=== PATIENT | male | born 1960 | race Caucasian/White ===

== ENCOUNTER 2019-04-26 14:56 | Outpatient (CLI) | payer OTHER, SELFPAY ==
--- NOTE | 2019-04-26 15:01 | CT_ITS ---
WS: [id number] CT pelvis TECHNIQUE: Contrast-enhanced CT of the pelvis with coronal and sagittal reformatted images. CLINICAL INFORMATION: L PERINEAL PAIN COMPARISON: None. DLP: [address] scans at [facility] use at least one of these dose optimization techniques: automat ed exposure control; mA and/or kV adjustment per patient size (includes targeted exams where dose is matched to clinical indication); or iterative reconstruction. FINDINGS: Mild fecal retention sigmoid colon. Diverticulosis. No evidence of acute diverticulitis. Sigmoid colo n is normal in appearance. Slightly enlarged prostate measuring 4.5 x 3.6 cm. Normal bladder. Left di stal ureterectasis measuring 15 mm. No visualized obstructing calculi. Left kidney can be further margie luated with CT abdomen pelvis. Left kidney is not included on this pelvic study. Distal right ureter appears decompressed. Normal caliber distal abdominal aorta. No inguinal lymphade nopathy. No inguinal hernia. No pelvic lymphadenopathy. Lower lumbar spine is unremarkable. CT/CT pelvis w con* [id number] IMPRESSION: 1. Diverticulosis. 2. No evidence of left lower quadrant or inguinal hernia. 3. No inguinal lymphadenopathy. 4. Dilated distal left ureter measuring 15 mm. No visualized obstructing calcu li. Recommend further evaluation with CT abdomen pelvis. 5. Slightly enlarged prostate measuring 4.4 x 3.6 cm. Recommend correlation PS A. 6. Bladder appears unremarkable.
[2019-04-26] MEDS: iohexol 300 mg/mL 50 mL Btl PO (15:16)
[2019-04-26] MEDS: iohexol 300 mg/mL 100 mL Btl IV (15:17)
== END 2019-04-26 14:57 | disposition home or self-care (01) ==
LOC: RADWPI 15:00
PROVIDERS: Family Provider Family Medicine; PCP Family Medicine; Visit Provider Surgery
DX: K57.90 Diverticulosis of intestine, part unspecified, without perforation or abscess without bleeding (principal); N28.82 Megaloureter; N40.0 Benign prostatic hyperplasia without lower urinary tract symptoms; R10.2 Pelvic and perineal pain
CPT/HCPCS: 72193; Q9967

== ENCOUNTER 2019-05-13 12:19 | Outpatient (CLI) | payer OTHER, SELFPAY ==
--- NOTE | 2019-05-13 12:41 | CT_ITS ---
WS: [id number] CT ABDOMEN PELVIS TECHNIQUE: Contrast-enhanced CT of the abdomen and pelvis with coronal and sagittal reformatted image s. CLINICAL INFORMATION: UNSPECIFIED DISORDER OF KIDNEY AND URETER, BENIGN PROSTATIC COMPARISON: CT pelvis April 26, 2019 DLP: 1247.[address] scans at [facility] use at least one of these dose optimization techniques: automat ed exposure control; mA and/or kV adjustment per patient size (includes targeted exams where dose is matched to clinical indication); or iterative reconstruction. FINDINGS: Again seen is the dilated distal left distal ureter measuring 15 mm. This is unchanged in appearance consistent with a small ureterocele. No obstructing renal or ureteral calculi. Normal renal parenchymal enhancement. No hydronephrosis. No rmal right ureter. Tiny left calyceal tip calculus. A few small bilateral renal cysts largest in the left measuring 1.4 CM. Normal liver. Normal gallblad philipp. Normal portal vein and splenic vein. Normal spleen. Fatty atrophy of the pancreas. Normal caliber abdominal aorta.Enlarged prostate measur ing 4.4 x 3.6 cm unchanged. Diverticulosis. No evidence of acute diverticulitis. Normal appendix. [place] g bases are well aerated. Calcified granuloma left lung base. Degenerative disc disease with endplate sclerosis at L1-2. CT/CT abdomen pelvis w con* [id number] IMPRESSION: 1. Focal dilatation of the distal left ureter proximal to the UVJ consistent w ith ureterocele measuring 15 mm. No obstructing renal or ureteral calculi. 2. Calcified enlarged prostate. Recommend correlation PSA. 3. Small bilateral renal cysts largest in the left measuring 1.4 CM. 4. No abdominal lymphadenopathy.
[2019-05-13] MEDS: iohexol 300 mg/mL 100 mL Btl IV (12:59)
== END 2019-05-13 12:20 | disposition home or self-care (01) ==
LOC: RADWPI 12:21
PROVIDERS: Family Provider Family Medicine; PCP Family Medicine; Visit Provider Family Medicine
DX: N28.9 Disorder of kidney and ureter, unspecified (principal); N40.0 Benign prostatic hyperplasia without lower urinary tract symptoms; N28.82 Megaloureter; Q61.02 Congenital multiple renal cysts
CPT/HCPCS: 74177; Q9967

== ENCOUNTER 2020-07-06 10:08 | Outpatient (CLI) | payer OTHER, SELFPAY ==
--- NOTE | 2020-07-06 10:19 | XR_ITS ---
WS: [id number] Right hip, AP and frog leg, AP pelvis, 07/06/2020 Clinical Data: R HIP PAIN/ARTHRITIS Comparison: None. Findings: No fractures or dislocations are seen. The hip joint is intact. The soft tissues are not remarkable. The adjacent pelvis is normal. There is a prominent acetabular lip. The right SI joint is not remarkable. There is cystic change of the pubic symphysis. XR/XR hip RT 2-3V wo/w pel* [id number] Impression: Prominent right acetabular lip.
== END 2020-07-06 10:09 | disposition home or self-care (01) ==
LOC: RAD 10:15
PROVIDERS: PCP Family Medicine; Visit Provider Family Medicine
DX: M25.551 Pain in right hip (principal); M19.90 Unspecified osteoarthritis, unspecified site
CPT/HCPCS: 73502

== ENCOUNTER 2020-12-26 09:16 | Inpatient (IN) | payer OTHER, SELFPAY ==
[2020-12-26] VITALS (49 sets, daily range): BP systolic 116–162; BP diastolic 46–89; PULSE 30–160; RESP 5–96; TEMP 36.6; O2SAT 86–98; BMI 31.1
--- NOTE | 2020-12-26 09:28 | ECG_ITS ---
[facility] Test Date: 2020-12-26 Pat Name: Be Sim Department: Room: Gender: Male Box Builder: : 1960 Requested By: Rajan Santiago Order Number: [id number] Derrick MD: Savi Dunham M.D. Measurements Intervals [place] Rate: 29 P: [place]: QRS: 42 QRSD: 153 T: 18 QT: 507 QTc: 355 Interpretive Statements SINUS BRADYCARDIA WITH 2ND DEGREE AV BLOCK, 2:1 OR MOBITZ TYPE II RIGHT BUNDLE BRANCH BLOCK [120+ ms QRS DURATION, UPRIGHT V1, 40+ ms S IN I/aVL/V4/V5/V6] CRITICAL TEST RESULT INTERPRETATION BASED ON A DEFAULT AGE OF 40 YEARS No previous ECG available for comparison Electronically Signed On 12-26-2020 21:30:00 CDT by Savi Dunham M.D. [id number]
[2020-12-26] MEDS: DOPamine drip 400 MG/250 ML PREMIX 11.74 MG IV (09:43)
[2020-12-26 09:50] LABS: Basophils # 0.1 10^3/uL (0.0-0.1); Eosinophils # 0.3 10^3/uL (0.0-0.8); Eosinophils % 4.9 %; Hematocrit 43.7 % (42.0-52.0); Hemoglobin 14.3 g/dL (11.7-16.6); Lymphocytes # 1.5 10^3/uL (0.8-4.8); Lymphocytes % 28.3 %; Mean Corpuscular HGB Conc 32.7 g/dL (30.0-36.0); Mean Corpuscular Hemoglobin 28.9 pg (28.0-34.0); Mean Corpuscular Volume 88.5 fl (80-94); Mean Platelet Volume 10.7 fL (7.4-10.4); Monocytes # 0.8 10^3/uL (0.2-0.9); Neutrophils # 2.59 10^3/uL (1.8-7.7); Neutrophils % 50.6 %; Nucleated Red Blood Cells % 0 %; Platelet Count 222 10^3/cmm (130-400); Red Blood Count 4.94 10^6/uL (4.1-5.3); Red Cell Distribution Width 13.9 % (12.1-15.1); White Blood Count 5.1 10^3/uL (4.0-10.0)
--- NOTE | 2020-12-26 09:50 | W.ED.GENADLT ---
HPI - General Adult General: Chief complaint: General Medical Stated complaint: Low BP & Pulse, Lightheaded Time Seen by Provider: 12/26/20 09:25 History of Present Illness: HPI narrative: 60-year-old male presents emergency room with a static-like symptoms lightheaded and dizzy when he first stands has been going on for some time now. On arrival today he has profound bradycardia he is in a 2-1 heart block. Is actually intermittent we did get an EKG on him where he was back in a severe sinus bradycardia then very shortly after that he goes back into the 2-1 block. Pressure is stable. He denies any chest pain. Evidently this has been going on for several weeks he is not on any blood thinners he is not on any beta-blockers or calcium channel blockers or any other negative around her tropes. Onset (ago): week(s) Severity: moderate Relieving factors: rest Exacerbating factors: other (Change in body position) Associated symptoms: Reports malaise; Deny chest pain, confusion, cough, diaphoresis, decreased appetite, dyspnea, fevers/chills, headache(s), nausea, rash, palpitations, seizures, short of breath, syncope, vomiting or weakness Treatments prior to arrival: none Review of Systems Const: Reports: malaise; Denies: diaphoresis ENMT: Denies: throat pain, ear or mastoid pain, nasal discharge or nasal congestion Card: Denies: chest pain, palpitations or syncope Resp: Denies: dyspnea GI: Denies: nausea or vomiting : Denies: flank pain, dysuria, urinary frequency or urinary urgency Skin/Breast: Denies: rash Neuro: Denies: headache(s) or confusion PFS ED PFSH: Medical History Depression HTN (hypertension) Peyronie disease RBBB Surgical History H/O arthroscopic knee surgery Previous back surgery Social History Smoking and tobacco status: never smoked Alcohol intake: current Alcohol intake frequency: holidays/special occasions only Physical Exam Const: COMMON NORMALS: no acute distress GENERAL APPEARANCE: cooperative and comfortable ORIENTATION/CONSCIOUSNESS: Yes awake, Yes oriented to person, Yes oriented to place and Yes oriented to time HENMT: COMMON NORMALS: normocephalic, atraumatic and hearing grossly normal bilaterally HEAD & SCALP: normocephalic and atraumatic Eye: COMMON NORMALS: Equal, round and reactive pupils present, EOMs intact bilaterally, conjunctivae normal and no scleral icterus CONJUNCTIVA: Yes conjunctivae normal PUPIL: Yes Equal, round and reactive pupils present Neck/C-Spine: COMMON NORMALS: full ROM, no lymphadenopathy and supple Lymph: LYMPHATIC: no lymphadenopathy noted and no lymphedema noted Resp: COMMON NORMALS: normal respiratory effort, No retractions, No use of accessory muscles and clear to auscultation bilaterally AUSCULTATION: clear to auscultation bilaterally Cardio: COMMON NORMALS: S1 normal heart sound present and S2 normal heart sound present RATE: bradycardic HEART SOUNDS: S1 normal heart sound present and S2 normal heart sound present GI: COMMON NORMALS: Soft to palpation and No hepatosplenomegaly present AUSCULTATION: Yes normoactive bowel sounds PALPATION: Yes Soft to palpation, No Tenderness to palpation present (GI), No Guarding due to palpation present (GI) and Yes No hepatosplenomegaly present Extremity: COMMON NORMALS: normal to inspection, capillary refill normal, no clubbing, cyanosis or edema, no calf tenderness and no pedal edema Neuro: SENSORIUM/ORIENTATION: Yes oriented to person, Yes oriented to place and Yes oriented to time Skin: COMMON NORMALS: no rashes or lesions noted GENERAL SKIN EXAM: no rashes or lesions noted Course Vital Signs: Vital signs: Vital Signs Temperature 99.0 F 12/28/20 08:00 Pulse Rate 61 12/28/20 09:00 Respiratory Rate 20 H 12/28/20 09:00 Blood Pressure 134/97 12/28/20 09:00 Pulse Oximetry 96 12/28/20 09:00 MDM - General Adult MDM Narrative: Medical decision making narrative: Initial EKG patient is showing a 2-1 block with what appears to be third-degree AV block he is completely independent QRS and OK complexes with no variation in the OK interval and the there is conduction through to the the AV node. Patient is asymptomatic for the most part as long as he remains lying down. Discussing with him this is been going on for quite some time. He has heart rate down into the 20s at times. We were able to get an EKG with him out of the block and then literally within 60 seconds he was back into the third-degree block. These were all documented. Have discussed with cardiology patient will be admitted for further evaluation for possible pacemaker placement. Lab Data: Labs: Lab Results 12/26/20 12/26/20 12/26/20 09:35 09:35 09:35 WBC 5.1 10^3/uL 10^3/ uL (4.0-10.0) RBC 4.94 10^6/uL 10^6 /uL (4.1-5.3) Hgb 14.3 g/dL g/dL (11.7-16.6) Hct 43.7 % % (42.0-52.0) MCV 88.5 fl fl (80-94) MCH 28.9 pg pg (28.0-34.0) MCHC 32.7 g/dL g/dL (30.0-36.0) RDW 13.9 % % (12.1-15.1) Plt Count 222 10^3/cmm 10^3 /cmm (130-400) MPV 10.7 fL H fL (7.4-10.4) Neut % (Auto) 50.6 % % Lymph % (Auto) 28.3 % % [place] % (Auto) 15.0 % % Eos % (Auto) 4.9 % % Baso % (Auto) 1.0 % % Neut # (Auto) 2.59 10^3/uL 10^3 /uL (1.8-7.7) Lymph # (Auto) 1.5 10^3/uL 10^3/ uL (0.8-4.8) [place] # (Auto) 0.8 10^3/uL 10^3/ uL (0.2-0.9) Eos # (Auto) 0.3 10^3/uL 10^3/ uL (0.0-0.8) Baso # (Auto) 0.1 10^3/uL 10^3/ uL (0.0-0.1) Nucleated RBC % (a uto) 0 % % Nucleated RBCs # 0.0 /100WBC /100W BC Sodium 137 mmol/L mmol/L (136-145) Potassium 4.8 mmol/L mmol/L (3.5-5.1) Chloride 102 mmol/L mmol/L (98-107) Carbon Dioxide 28 mmol/L mmol/L (22-29) Anion Gap 11.8 (5-19) BUN 24 mg/dL H mg/dL (8-23) Creatinine 0.9 mg/dL mg/dL (0.7-1.2) GFR Calculation 86.1 mL/min L mL/ min (90-130) Glucose 88 mg/dL mg/dL (65-115) Calculated Osmolal ity 287 mOsm/kg mOsm/ kg (285-295) Calcium 8.7 mg/dL mg/dL (8.5-10.5) Total Bilirubin 0.3 mg/dL mg/dL (0.15-1.2) AST 18 U/L U/L (0-40) ALT 20 U/L U/L (0-41) Alkaline Phosphata se 65 IU/L IU/L (40-130) Troponin T Baselin e 9 ng/L ng/L (0-15) Total Protein 6.8 g/dL g/dL (6.6-8.7) Albumin 4.1 g/dL g/dL (3.5-5.2) Globulin 2.7 g/dL g/dL (1.3-4.6) Discharge Plan Discharge Patient Disposition: Admitted As Inpatient Admit Provider: Lana Aguilera Clinical Impression: Third degree atrioventricular block, HTN (hypertension) Condition: Stable Discharge Diet: Cardiac Discharge Activity: Limit activity as instructed Coding Level of Care Code ED Inspector Purchased Parts for Chg Fwd Exam Comprehensive
--- NOTE | 2020-12-26 10:12 | XR_ITS ---
WS: [id number] Exam: XR chest 1V portable [id number] Date/Time of Exam: 12/26/2020 10:12 AM Reason For Exam: chest pain Comparison 07/25/2015. Findings: The lungs are clear and fully expanded. Costophrenic angles are sharp. No infiltrates. Bronchovascula r relief appears normal. Cardiac silhouette is unremarkable. Bony elements are intact. XR/XR chest 1V portable [id number] IMPRESSION: Unremarkable chest radiograph.
[2020-12-26 10:21] LABS: Troponin(5th) Baseline 9 ng/L (0-15)
[2020-12-26 10:23] LABS: Alanine Aminotransferase 20 U/L (0-41); Albumin Level 4.1 g/dL (3.5-5.2); Alkaline Phosphatase 65 IU/L (40-130); Anion Gap 11.8 (5-19); Aspartate Amino Transferase 18 U/L (0-40); Blood Urea Nitrogen 24 mg/dL (8-23); Calcium 8.7 mg/dL (8.5-10.5); Carbon Dioxide 28 mmol/L (22-29); Chloride 102 mmol/L (98-107); Globulin 2.7 g/dL (1.3-4.6); Glomerular Filtration Rate 86.1 mL/min (90-130); Glucose 88 mg/dL (65-115); Osmolality Calculated 287 mOsm/kg (285-295); Potassium 4.8 mmol/L (3.5-5.1); Sodium 137 mmol/L (136-145); Total Bilirubin 0.3 mg/dL (0.15-1.2); Total Protein 6.8 g/dL (6.6-8.7)
--- NOTE | 2020-12-26 10:50 | USCV_ITS ---
Be Sim Age: 60 Gender: M : 1960 Exam Date: 12/26/2020 14:35 Ordering Phys: Lana Aguilera MD ([email or web address]) Technologist: Dawood Wang Exam Location: [facility] [place] Indication: Bradycardia, Heart Block, Dizziness BP: 158 / 69 HR: 36 Rhythm: Sinus Technical Quality: Adequate MEASUREMENTS (Male / Female) Normal Values 2D ECHO LV Diastolic Diameter PLAX 3.7 cm 4.2 - 5.9 / 3.9 - 5.3 cm LV Systolic Diameter PLAX 2.4 cm IVS Diastolic Thickness 1.7 cm 0.6 - 1.0 / 0.6 - 0.9 cm IVS Systolic Thickness 1.6 cm LVPW Diastolic Thickness 1.5 cm 0.6 - 1.0 / 0.6 - 0.9 cm LVPW Systolic Thickness 1.3 cm LVOT Diameter 2.1 cm LV Ejection Fraction 2D Teich 66.8 % LV Ejection Fraction MOD 2C 60.2 % LV Ejection Fraction 2C AL 59.3 % LA Diameter 3.9 cm M-MODE Aortic Annulus Diameter 3.2 cm LA Ao Ratio MM 1.3 MV E Point Septal Separation 0.8 cm DOPPLER AV Peak Velocity 239.0 cm/s LVOT Peak Velocity 152.0 cm/s AV Area Cont Eq vti 2.3 cm squared AV Area Cont Eq pk 2.2 cm squared MV Area PHT 5.0 cm squared Mitral E to A Ratio 2.0 MV E' Velocity 72.0 cm/s Mitral E to MV E' Ratio 6.4 Mitral E to LV E' Lateral Ratio 6.5 Mitral E to LV E' Septal Ratio 6.4 TR Peak Velocity 219.7 cm/s TR Peak Gradient 19.3 mmHg TV Peak E Velocity 131.0 cm/s FINDINGS Left Ventricle Normal left ventricular size, systolic function and wall thickness, with no regional wall motion abnormalities. Left ventricular ejection fraction is estimated at 70 %. Right Ventricle Normal right ventricular size and systolic function. RVSP could not be calculated due to incomplete tricuspid regurgitation velocity profile. Right Atrium Normal right atrial size. Left Atrium Normal left atrial size. Mitral Valve Structurally normal mitral valve. No mitral valve stenosis. Mild mitral valve regurgitation. Aortic Valve Aortic valve not well visualized. No aortic valve stenosis. No aortic valve regurgitation. Tricuspid Valve Structurally normal tricuspid valve. Trace tricuspid valve regurgitation. Pulmonic Valve Pulmonic valve not well visualized. Pericardium No pericardial effusion. Aorta Normal-sized aortic root. CONCLUSIONS 1. This is a technically difficult study. Ultrasound enhancing agent Optison was used per protocol. 2. Normal left ventricular size, systolic function and wall thickness, with no regional wall motion abnormalities. Left ventricular ejection fraction is estimated at 70 %. 3. Normal right ventricular size and systolic function. 4. Mild mitral valve regurgitation. 5. No prior similar studies to compare. Lana Aguilera MD (Electronically Signed) Final Date: 26 December 2020 17:27 S
--- NOTE | 2020-12-26 10:54 | PM.HP ---
Providers/Chief Complaint Admitting Physician: Lana Aguilera MD Primary Care Provider: oJse Roberto Carlson DO Chief Complaint: Low BP & Pulse, Lightheaded History of Present Illness Be Sim is a 60 year old male with past medical history of hypertension, depression and right eye blindness presented to the ER with 2-week history of feeling tired and fatigue and 4-day history of feeling dizzy and lightheaded especially on standing up. Patient's blood pressure usually ranges from 103-143/49-76 mmHg and heart rate ranges from 49 to 58 bpm. He takes valsartan 40 mg for hypertension but for the last 4 days his blood pressure was running lower and he did not take his valsartan. Heart rate has been ranging from 3243 bpm for the last 4 days. He has no prior history of coronary artery disease, congestive heart failure, history of CVA or TIA. No prior history of thyroid problems or any recent illness. He denies any URI or UTI-like symptoms on arrival. No chest pain, leg swelling dyspnea on exertion orthopnea or paroxysmal nocturnal dyspnea. Patient has been on citalopram for depression for a long time and was also taking pentoxifylline 400 mg twice a day for suspected Peyronie's disease for 2 months which he quit 2 weeks back. 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 On arrival to the ER he was found to be bradycardic with heart rate in 20s. EKG showed sinus bradycardia with 2:1 AV block at 29 bpm. Right bundle branch block. Initial labs including WBC, electrolytes, troponin T and renal function was within normal limits. He was started on dopamine at 3 that was increased to 5 mcg/kg/min. blood pressure on arrival 139/89 mmHg. He has been vaccinated with 2 doses of [place] COVID-19 vaccine in September and October. No recent sick contacts or prior COVID-19 infection. Review of Systems General: Reports: 10 or more systems reviewed and unremarkable except in HPI and below Const: Reports: malaise; Denies: fever(s), chills or diaphoresis ENMT: Denies: throat pain, ear or mastoid pain, nasal discharge or nasal congestion Card: Denies: chest pain, palpitations or syncope Resp: Denies: dyspnea GI: Denies: nausea or vomiting : Denies: flank pain, dysuria, urinary frequency or urinary urgency Skin/Breast: Denies: rash Neuro: Denies: headache(s) or confusion Psych: Denies: anxiety or depression [place]/Lymph: Denies: easy bruising or easy bleeding Medications/Allergies Home Medications Medication Instructions Recorded Confirmed Last Taken Type cetirizine [Zyrtec] 10 mg PO DAILY 12/26/20 12/26/20 12/25/20 History citalopram 40 mg PO DAILY 12/26/20 12/26/20 12/25/20 History pentoxifylline 400 mg PO BID 12/26/20 12/26/20 12/19/20 History Allergies Allergy/AdvReac Type Severity Reaction Status Date / Time No Known Allergies Allergy Verified 12/26/20 09:38 PFSH Acute PFSH: Medical History (Updated 12/26/20 @ 13:33 by Lana Aguilera MD) Depression HTN (hypertension) Peyronie disease RBBB Surgical History (Updated 12/26/20 @ 13:27 by Lana Aguilera MD) H/O arthroscopic knee surgery Previous back surgery Social History (Updated 12/26/20 @ 13:28 by Lana Aguilera MD) Smoking and tobacco status: never smoked Alcohol intake: current Alcohol intake frequency: holidays/special occasions only Substance/Drug Use: never Vitals/I&O/Wt Last Vital Signs Temp 97.8 F 12/26/20 09:27 Pulse 34 L 12/26/20 10:29 Resp 13 12/26/20 10:29 BP 147/68 12/26/20 10:29 Pulse Ox 93 12/26/20 10:29 12/25/20 12/26/20 12/26/20 22:59 06:59 14:59 Intake Total 2.152 / 2.152 Balance 2.152 / 2.152 Weight last 48 hrs Weight 230 lb Weight 230 lb Physical Exam Narrative: EXAM NARRATIVE: GENERAL: Averagely built and averagely nourished in no acute distress HEENT: Right eye ocular prosthesis. No pallor or icterus. NECK: No JVD, No carotid bruit. CARDIOVASCULAR SYSTEM: S1-S2 regular. bradycardia+, No murmur appreciated RESPIRATORY SYSTEM: Chest clear to auscultation. No wheezes rhonchi or rubs heard. No use of accessory muscles. ABDOMEN: Soft, nontender and nondistended. Normal bowel sounds present. EXTREMITIES: No cyanosis or clubbing. No edema. LIABILITY CLAIMS REPRESENTATIVE: Patient is alert oriented ?3. No focal neurological deficits. SKIN: Normal turgor and temperature. PSYCH: Normal insight and judgment. Data : 12/26/20 09:35 12/26/20 09:35 A&P Assessment and plan (1) Bradycardia: Status: Acute (2) AV block, 2nd degree: He remains in 2:1 AV block. Increase dopamine gtt to 10 mcg/kg/min -Plan for Echo and f/u on troponin T and EKG's -Not on AV shyann blockers. -Will get rapid COVID antigen and COVID-19 PCR tests pre PPM. -continue to monitor closely in ICU. -TCP pads in place. No indications for temporary pacemaker presently. Status: Acute (3) HTN (hypertension): Status: Acute Qualifiers: Hypertension type: essential hypertension Qualified Code(s): I10 - Essential (primary) hypertension (4) RBBB: Status: Acute (5) Depression: Status: Acute Qualifiers: Depression Type: unspecified Qualified Code(s): F32.9 - Major depressive disorder, single episode, unspecified Attestations Medical Necessity Statement*: Patient needs hospital stay for management of bradycardia with 2:1 AV block Time Spent in Patient Care: Greater than 35 minutes (>than 50% of time spent in counselling and/or direct pt care on unit). Coding Level of Care Code Acute Evaporator Repairer for [facility] [place] Diagnoses Bradycardia R00.1 AV block, 2nd degree I44.1 HTN (hypertension) I10 Hypertension type: essential hypertension RBBB I45.10 Depression F32.9 Depression Type: unspecified
--- NOTE | 2020-12-26 11:28 | ECG_ITS ---
[facility] Test Date: 2020-12-26 Pat Name: Be Sim Department: Room: [facility] Gender: Male Director Of Analytics: : 1960 Requested By: Rajan Santiago Order Number: [id number] Derrick MD: Savi Dunham M.D. Measurements Intervals [place] Rate: 36 P: [place]: QRS: 74 QRSD: 153 T: 34 QT: 507 QTc: 397 Interpretive Statements SINUS BRADYCARDIA WITH 2ND DEGREE AV BLOCK, 2:1 OR MOBITZ TYPE II RIGHT BUNDLE BRANCH BLOCK [120+ ms QRS DURATION, UPRIGHT V1, 40+ ms S IN I/aVL/V4/V5/V6] CRITICAL TEST RESULT Compared to ECG 12/26/2020 09:41:59 No significant changes Electronically Signed On 12-26-2020 21:49:00 CDT by Savi Dunham M.D. [id number]
[2020-12-26 12:20] LABS: Troponin 5 2HR 7.59 ng/L (0-15)
[2020-12-26 12:28] LABS: Troponin 5 2HR Delta -1.41 ABS# (0-10)
[2020-12-26] MEDS: enoxaparin 40 mg/0.4 mL Syringe SUBCUT (13:41)
--- NOTE | 2020-12-26 14:02 | PC.NURSE ---
Has an artificial right eye.
--- NOTE | 2020-12-26 14:13 | PC.NURSE ---
Admit Note Patient admitted to ICU 5 from ED via bed. Covering service notified. Patient presents with shoes, clothing, wedding ring, phone, and wallet. will take wallet home. taken to room. Orders reviewed & will continue to monitor. Patient and/or credit representative oriented to environment, equipment, and informed of the following as found in the admission booklet: patient rights & responsibilities, visitor policy, hand and respiratory hygiene practice. Other education includes: dopamine and care plan. Patient and/or credit representative indicated understanding.
--- NOTE | 2020-12-26 14:17 | PC.NURSE ---
1215: Dopamine increased from 5 mcg to 10 mcg per doctor by bedside.
[2020-12-26 14:38] LABS: Add Urine Microscopic? NO; Charge for UA Resulting for Rev
[2020-12-26] MEDS: perflutren protein-a microsphr 0.22 mg/mL SDV 3 mL IV (15:09)
--- NOTE | 2020-12-26 15:28 | ECG_ITS ---
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 Measurements Intervals [place] Rate: 34 P: [place]: QRS: 58 QRSD: 149 T: 22 QT: 540 QTc: 410 Interpretive Statements SINUS BRADYCARDIA WITH 2ND DEGREE AV BLOCK, 2:1 OR MOBITZ TYPE II RIGHT BUNDLE BRANCH BLOCK [120+ ms QRS DURATION, UPRIGHT V1, 40+ ms S IN I/aVL/V4/V5/V6] CRITICAL TEST RESULT Compared to ECG 12/26/2020 13:38:25 No significant changes Electronically Signed On 12-26-2020 21:51:15 CDT by Savi Dunham M.D. [email or web address]/OM/[id number]
[2020-12-26] MEDS: acetaminophen 325 mg Tablet 650 MG PO (15:35)
[2020-12-26 15:53] LABS: SARS Covid-2 Antigen Negative (Negative)
[2020-12-26 16:03] LABS: Troponin 5 6HR 18.03 ng/L (0-15); Troponin 5 6HR Delta 9.03 ng/L (0-12)
[2020-12-26 16:10] LABS: Bilirubin Urine Neg (Negative); Blood Urine Neg (Negative); Glucose Urine UA Norm (Normal); Ketones Urine 1+ (Negative); Leukocyte Esterase Urine Negative (Negative); Nitrate Urine Negative (Negative); Protein Urine Neg (Negative); Urine Appearance Clear (CLEAR); Urine Color Yellow (Yellow); Urobilinogen Urine Norm (Negative); pH Urine 6 (5-7)
[2020-12-26] MEDS: nicotine 14 mg Patch 1 PATCH TRANSDERMA (16:18)
[2020-12-26] MEDS: DOPamine drip 400 MG/250 ML PREMIX 39.12 MG IV ×2 (17:05→23:35)
--- NOTE | 2020-12-26 18:08 | PC.NURSE ---
Patient states that he chews one can of tobacco a day. Pt states that he chews all day long. Patient rated headache at a 6. Gave Tylenol for headache and darkened room.
--- NOTE | 2020-12-26 19:11 | PC.NURSE ---
Shift Note Frequent safety and comfort rounds continue. Orders and/or nursing care completed as indicated. Patient monitored for response to intervention and treatment(s). Education provided includes plan of care, medications, activity, and bed rest order. Patient verbalized understanding. Patient has an artificial right eye. Patient gets up to side of bed independently. Bed rest order discussed with patient. Patient resting and has television on.
[2020-12-26] MEDS: HYDROcodone-acetaminophen 5-325 mg Tablet 1 TAB PO (19:17)
--- NOTE | 2020-12-26 19:46 | PC.NURSE ---
C/O GARRETT 10/06, PRN [place] administered per patient request, no other c/o at this time, AO x4, at bedside
[2020-12-26] MEDS: ondansetron 2 mg/ML SDV 2 mL 4 MG IVP (23:40)
--- NOTE | 2020-12-26 23:40 | PC.NURSE ---
one episode emesis, PRN Zofran administered
[2020-12-27] VITALS (43 sets, daily range): BP systolic 91–188; BP diastolic 40–106; PULSE 29–61; RESP 4–19; TEMP 36.6; O2SAT 81–98
[2020-12-27] MEDS: DOPamine drip 400 MG/250 ML PREMIX 39.12 MG IV ×2 (05:02→10:53)
[2020-12-27 05:13] LABS: Basophils # 0.1 10^3/uL (0.0-0.1); Basophils % 0.5 %; Eosinophils # 0.1 10^3/uL (0.0-0.8); Eosinophils % 0.8 %; Hematocrit 48.3 % (42.0-52.0); Hemoglobin 15.7 g/dL (11.7-16.6); Lymphocytes # 1.7 10^3/uL (0.8-4.8); Lymphocytes % 17.9 %; Mean Corpuscular HGB Conc 32.5 g/dL (30.0-36.0); Mean Corpuscular Hemoglobin 28.2 pg (28.0-34.0); Mean Corpuscular Volume 86.9 fl (80-94); Mean Platelet Volume 10.3 fL (7.4-10.4); Monocytes # 1.1 10^3/uL (0.2-0.9); Monocytes % 11.2 %; Neutrophils # 6.66 10^3/uL (1.8-7.7); Neutrophils % 69.3 %; Nucleated Red Blood Cells % 0 %; Platelet Count 258 10^3/cmm (130-400); Red Blood Count 5.56 10^6/uL (4.1-5.3); Red Cell Distribution Width 13.1 % (12.1-15.1); White Blood Count 9.6 10^3/uL (4.0-10.0)
[2020-12-27 05:31] LABS: Estmated Average Glucose 114; Hemoglobin A1C 5.6 % (4.0-6.0)
[2020-12-27 05:41] LABS: Alanine Aminotransferase 19 U/L (0-41); Albumin Level 4.1 g/dL (3.5-5.2); Alkaline Phosphatase 68 IU/L (40-130); Anion Gap 14.6 (5-19); Aspartate Amino Transferase 16 U/L (0-40); Blood Urea Nitrogen 17 mg/dL (8-23); Carbon Dioxide 27 mmol/L (22-29); Chloride 105 mmol/L (98-107); Chol HDL Ratio 2.33 mg/dL (1.0-5.00); Cholesterol 161 mg/dL (0-200); Creatinine Clr Calc Pharmacy 122.6256; Globulin 3.3 g/dL (1.3-4.6); Glomerular Filtration Rate 98.6 mL/min (90-130); Glucose 120 mg/dL (65-115); HDL Cholesterol 69 mg/dL (60-100); LDL Cholesterol Calculated 82 mg/dL (50-129); LDL HDL Ratio 1.19 RATIO (0.00-3.22); Osmolality Calculated 297 mOsm/kg (285-295); Potassium 4.6 mmol/L (3.5-5.1); Sodium 142 mmol/L (136-145); Total Bilirubin 0.4 mg/dL (0.15-1.2); Total Protein 7.4 g/dL (6.6-8.7); Triglycerides 52 mg/dL (0-150)
--- NOTE | 2020-12-27 06:46 | PC.NURSE ---
Dr. Oneal reviewed rhyth no n.o., no c/o from patient at this time, call light within reach
--- NOTE | 2020-12-27 06:48 | PC.NURSE ---
Shift Note Frequent safety and comfort rounds continue. Orders and/or nursing care completed as indicated. Patient monitored for response to intervention and treatment(s). Education provided includes[Heart rhythm]. Patient and/or policy services representative [reported understanding]. Will continue to monitor.
--- NOTE | 2020-12-27 07:26 | PC.NURSE ---
Patient resting in bed. Patient HR ranging from 29-50 beats per minute this morning. Patient being monitor and awaiting a pacemaker on Thursday, if Covid send out comes back negative. Patient is currently on Dopamine drip 10mcg/kg/min. Will continue to monitor.
--- NOTE | 2020-12-27 08:09 | PC.NURSE ---
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 Patient states that he has had it since he was 1.5 years old.
--- NOTE | 2020-12-27 08:23 | PC.NURSE ---
Patient educated on the importance of calling to get up due to his HR and bp, and told that it can make him weak and make him feel faint. Patient verbalized understanding. Bed low locked position, side rails up x2, and call light in reach. Will continue to monitor.
--- NOTE | 2020-12-27 09:16 | P.CONIM_ITS ---
Providers/Reason For Consult Consulting Physician/Specialty*: Cardiology Reason for Consult*: For permanent pacemaker implantation Attending Physician: Lana Aguilera MD Primary Care Provider: Jose Roberto Carlson DO History of Present Illness History of Present Illness Be Sim is a 60 year old male with a longstanding history of hypertension, is admitted to the hospital with complaints of dizziness , weakness and bradycardia. He was found to have second-degree heart block and intermittent high degree AV block. The consult is requested for a permanent pacemaker implantation. This patient apparently has been in his baseline state of health up until last Thursday when he started getting dizzy and lightheaded as he gets up and move around. Prior to this, he has been having some progressive shortness of breath with exertion. He denies any fever, chills or cough. No syncopal episodes. He has been compliant with medications. No recent medication changes. 3 of his paternal aunts had permanent pacemaker medications! Review of Systems Narrative: CONSTITUTIONAL: No fever or chills. Feeling of dizziness/weakness since last Thursday EYES: No vision in the right eye ENT: No hoarseness of voice, auditory disturbances or sore throat. CARDIOVASCULAR: As mentioned above. RESPIRATORY: No significant cough. GASTROINTESTINAL: No hematemesis or melena. GENITOURINARY: No dysuria or hematuria. INTEGUMENTARY: No skin rashes or history of skin cancer. NEURO: No transient ischemic attacks or amaurosis. PSYCHIATRIC: No history of psychosis or major depression. HEMATOLOGIC: No bleeding disorders or significant anemia. ENDOCRINE: No history of polyuria or polydipsia. MUSCULOSKELETAL: No recent joint pain or swelling. ALLERGY/IMMUNOLOGY: As mentioned above. Meds/Allergies Home Medications and Allergies Home Medications Medication Instructions Recorded Confirmed Last Taken Type cetirizine [Zyrtec] 10 mg PO DAILY 12/26/20 12/26/20 12/25/20 History citalopram 40 mg PO DAILY 12/26/20 12/26/20 12/25/20 History pentoxifylline 400 mg PO BID 12/26/20 12/26/20 12/19/20 History Allergies Allergy/AdvReac Type Severity Reaction Status Date / Time No Known Allergies Allergy Verified 12/26/20 09:38 Current Medications Current Medications Generic Name Dose Route Start Last Admin Trade Name Freq PRN Reason Stop Dose Admin Acetaminophen 650 mg 12/26/20 12:32 12/26/20 15:35 Acetaminophen 325 Mg Tablet PO 650 mg Q6H PRN Administration Mild/Mod Pain Or Temp >/= 101 Hydrocodone Bitart/Acetaminophen 1 tab 12/26/20 16:38 12/26/20 19:17 Hydrocodone-Acetaminophen 5-325 Mg Tablet PO 1 tab Q8H PRN Administration MODERATE PAIN Enoxaparin Sodium 40 mg 12/26/20 12:45 12/26/20 13:41 Enoxaparin 40 Mg/0.4 Ml Syringe SUBCUT 40 mg Q24H NIRAV Administration Dopamine HCl/Dextrose 400 mg in 250 mls @ 19.561 mls/hr 12/26/20 09:45 12/27/20 05:02 Intropin Drip IV 10 mcg/kg/min CONT NIRAV 39.12 mls/hr Administration Protocol 5 MCG/KG/MIN Nicotine 1 patch 12/26/20 16:30 12/26/20 16:18 Nicotine 14 Mg Patch TRANSDERMA 1 patch DAILY NIRAV Administration Ondansetron HCl 4 mg 12/26/20 12:32 12/26/20 23:40 Ondansetron 2 Mg/Ml Sdv 2 Ml IVP 4 mg Q8H PRN Administration vomiting, or N/V if npo PFSH Acute PFSH: Medical History Depression HTN (hypertension) Peyronie disease RBBB Surgical History H/O arthroscopic knee surgery Previous back surgery Social History Smoking and tobacco status: never smoked Alcohol intake: current Alcohol intake frequency: holidays/special occasions only Substance/Drug Use: never Vitals/I&O/Wt Last Vital Signs Temp 97.9 F 12/27/20 08:00 Pulse 30 L 12/27/20 08:30 Resp 12 12/27/20 08:30 BP 129/52 12/27/20 08:30 Pulse Ox 91 12/27/20 08:30 12/26/20 12/27/20 12/27/20 22:59 06:59 14:59 Intake Total 722.62 / 1084.000 500 / 1584.000 354 / 354 Output Total 800 / 1050 1410 / 2460 300 / 300 Balance -77.38 / 34.000 -910 / -876.000 54 / 54 Weight last 48 hrs Weight 230 lb Weight 230 lb Physical Exam Narrative: EXAM NARRATIVE: GENERAL: The patient is alert and oriented times three. Not in any acute distress. HEENT: No significant pallor, icterus or lymphadenopathy.Oral cavity: There are no mucous membrane lesions. NECK: Trachea appears to be central. No masses noted. No JVD or thyromegaly appreciated. RESPIRATORY: Chest is symmetrical. No intercostals muscle retraction or any accessory muscle activation. There is no chest wall tenderness. Breath sounds are heard bilaterally. No rales or rhonchi heard. No evidence of any consolidation. BREASTS: Deferred. HEART: The heart sounds are normal. No S3 or S4. No significant murmurs. No pericardial rub ABDOMEN: No vessel pulsations or distention. No tenderness. No organomegaly appreciated. Bowel sounds are normally heard. : Deferred. RECTAL: Deferred. LYMPHATIC: No lymphadenopathy noted in the neck or groin. EXTREMITIES: No edema or cyanosis. No clubbing. Peripheral pulses are palpated in fairly good volume and amplitude MUSCULOSKELETAL: No acute joint deformities or swelling SKIN: There are no significant rashes or ecchymosis NEUROPSYCHIATRIC: The patient is alert and oriented x3. Appears to be in a good mood. No tremors or rigidity noted. Data Labs: Other Labs: Laboratory Last Values WBC 9.6 10^3/uL (4.0- 10.0) 12/27/20 04:54 RBC 5.56 10^6/uL (4.1 -5.3) H 12/27/20 04:54 Hgb 15.7 g/dL (11.7-1 6.6) 12/27/20 04:54 Hct 48.3 % (42.0-52.0 ) 12/27/20 04:54 MCV 86.9 fl (80-94) 12/27/20 04:54 MCH 28.2 pg (28.0-34. 0) 12/27/20 04:54 MCHC 32.5 g/dL (30.0-3 6.0) 12/27/20 04:54 RDW 13.1 % (12.1-15.1 ) 12/27/20 04:54 Plt Count 258 10^3/cmm (130 -400) 12/27/20 04:54 MPV 10.3 fL (7.4-10.4 ) 12/27/20 04:54 Neut % (Auto) 69.3 % 12/27/20 04:54 Lymph % (Auto) 17.9 % 12/27/20 04:54 [place] % (Auto) 11.2 % 12/27/20 04:54 Eos % (Auto) 0.8 % 12/27/20 04:54 Baso % (Auto) 0.5 % 12/27/20 04:54 Neut # (Auto) 6.66 10^3/uL (1.8 -7.7) 12/27/20 04:54 Lymph # (Auto) 1.7 10^3/uL (0.8- 4.8) 12/27/20 04:54 [place] # (Auto) 1.1 10^3/uL (0.2- 0.9) H 12/27/20 04:54 Eos # (Auto) 0.1 10^3/uL (0.0- 0.8) 12/27/20 04:54 Baso # (Auto) 0.1 10^3/uL (0.0- 0.1) 12/27/20 04:54 Nucleated RBC % (a uto) 0 % 12/27/20 04:54 Nucleated RBCs # 0.0 /100WBC 12/27/20 04:54 PT 14.50 SECONDS (12 .1-14.9) 12/27/20 04:54 INR 1.10 (0.8-1.2) 12/27/20 04:54 Sodium 142 mmol/L (136-1 45) 12/27/20 04:54 Potassium 4.6 mmol/L (3.5-5 .1) 12/27/20 04:54 Chloride 105 mmol/L (98-10 7) 12/27/20 04:54 Carbon Dioxide 27 mmol/L (22-29) 12/27/20 04:54 Anion Gap 14.6 (5-19) 12/27/20 04:54 BUN 17 mg/dL (8-23) 12/27/20 04:54 Creatinine 0.8 mg/dL (0.7-1. 2) 12/27/20 04:54 GFR Calculation 98.6 mL/min (90-1 30) 12/27/20 04:54 Glucose 120 mg/dL (65-115 ) H 12/27/20 04:54 Estimat Average Gl ucose 114 12/27/20 04:54 Hemoglobin A1c 5.6 % (4.0-6.0) 12/27/20 04:54 Calculated Osmolal ity 297 mOsm/kg (285- 295) H 12/27/20 04:54 Calcium 9.0 mg/dL (8.5-10 .5) 12/27/20 04:54 Total Bilirubin 0.4 mg/dL (0.15-1 .2) 12/27/20 04:54 AST 16 U/L (0-40) 12/27/20 04:54 ALT 19 U/L (0-41) 12/27/20 04:54 Alkaline Phosphata se 68 IU/L (40-130) 12/27/20 04:54 Troponin T Baselin e 9 ng/L (0-15) 12/26/20 09:35 Troponin T 120 Min [place] 7.59 ng/L (0-15) 12/26/20 11:40 Delta Troponin T -1.41 ABS# (0-10) L 12/26/20 11:40 Troponin T Hi Sens 6Hr 18.03 ng/L (0-15) H 12/26/20 15:25 Troponin T Hi Sens 6Hr Delta 9.03 ng/L (0-12) 12/26/20 15:25 Total Protein 7.4 g/dL (6.6-8.7 ) 12/27/20 04:54 Albumin 4.1 g/dL (3.5-5.2 ) 12/27/20 04:54 Globulin 3.3 g/dL (1.3-4.6 ) 12/27/20 04:54 Triglycerides 52 mg/dL (0-150) 12/27/20 04:54 Cholesterol 161 mg/dL (0-200) 12/27/20 04:54 LDL Cholesterol, C alc 82 mg/dL (50-129) 12/27/20 04:54 HDL Cholesterol 69 mg/dL (60-100) 12/27/20 04:54 LDL/HDL Ratio 1.19 RATIO (0.00- 3.22) 12/27/20 04:54 Cholesterol/HDL Ra connie 2.33 mg/dL (1.0-5 .00) 12/27/20 04:54 TSH 0.70 uIU/mL (0.27 -4.20) 12/26/20 11:30 Urine Color Yellow (Yellow) 12/26/20 14:30 Urine Appearance Clear (CLEAR) 12/26/20 14:30 Urine pH 6 (5-7) 12/26/20 14:30 Ur Specific Gravit y 1.010 (1.005-1.0 30) 12/26/20 14:30 Urine Protein Neg (Negative) 12/26/20 14:30 Urine Glucose (UA) Norm (Normal) 12/26/20 14:30 Urine Ketones 1+ (Negative) H 12/26/20 14:30 Urine Blood Neg (Negative) 12/26/20 14:30 Urine Nitrate Negative (Negati ve) 12/26/20 14:30 Urine Bilirubin Neg (Negative) 12/26/20 14:30 Urine Urobilinogen Norm mg/dL (Negat matthew) 12/26/20 14:30 Ur Leukocyte Pilar ase Negative (Negati ve) 12/26/20 14:30 SARS-CoV-2 Ag (Rap id) Negative (Negati ve) 12/26/20 14:30 Imaging^: Echo: I personally reviewed and interpreted this imaging study as follows: My impression: 1. This is a technically difficult study. Ultrasound enhancing agent Optison was used per protocol. 2. Normal left ventricular size, systolic function and wall thickness, with no regional wall motion abnormalities. Left ventricular ejection fraction is estimated at 70 %. 3. Normal right ventricular size and systolic function. 4. Mild mitral valve regurgitation. 5. No prior similar studies to compare. A&P Assessment and plan (1) AV block, 2nd degree: Patient seems to have second-degree type II and intermittent high degree AV block's. I agree with Dr. Aguilera- for further management of his condition, a permanent pacemaker mentation would be appropriate. He may benefit from dual- chamber permanent pacemaker for AV synchrony and symptom relief. The risk of bleeding, hematoma, vascular injury, pneumothorax, infection, renal failure and other concomitant complications were explained in detail. The patient and his understood this well and consented to proceed. We may go ahead and plan for this procedure this evening.Patient on the patient is a clinical progress We may do a temporary pacemaker in the Upsetting Machine Operator prior to the procedure. This also was discussed with the patient in detail which is understood well. Patient is right-handed. He has no allergy to Iodine. The rapid test for the COVID-19 is negative. Patient had the vaccination. Status: Acute (2) Bradycardia: Patient is on dopamine. The heart rate seems to be staying in the 30s and 40s. Status: Acute (3) HTN (hypertension): Patient has intermittent accelerated hypertension in the ICU especially with the higher dose of dopamine. Currently is on dopamine of 10 mics per KG per minute. The latest blood pressure is within normal limits. Status: Acute Qualifiers: Hypertension type: essential hypertension Qualified Code(s): I10 - Essential (primary) hypertension Additional A&P Information Appreciate the consult from Dr. Rehman. Consult Attestations Medical Necessity Statement: Patient requires continued hospital stay for close monitoring and further management Coding Level of Care Code Acute Staff Training And Development Manager for g Fwd Diagnoses AV block, 2nd degree I44.1 Bradycardia R00.1 HTN (hypertension) I10 Hypertension type: essential hypertension
--- NOTE | 2020-12-27 10:00 | PC.NURSE ---
0830 Reported patient's heart rate ranging from 28 to 31 beats per minute to Dr. Aguilera. Reported blood pressure. Orders to increased dopamine to 12.5 mcg/kg/min. [address] Dunham. Reviewed vitals signs, heart rhythm, medications, and plan of care. Dr. Dunham explained pace maker procedure in detail. Patient's at bedside. Orders to decrease dopamine drip to 10 mcg/kg/min. Plan for pace maker this afternoon.
[2020-12-27] MEDS: nicotine 14 mg Patch 1 PATCH TRANSDERMA (10:29)
[2020-12-27] MEDS: sodium chloride 0.9% 1,000 ML 75 ML IV ×2 (11:56→20:19)
[2020-12-27] MEDS: HYDROcodone-acetaminophen 5-325 mg Tablet 1 TAB PO (15:03)
[2020-12-27 16:01] LABS: Coronavirus Test Green County Not Detected
--- NOTE | 2020-12-27 16:23 | W.PM.OPSUD ---
Surgery/Procedure H&P Update DATE OF PROCEDURE: December 27, 2020 DATE H&P PERFORMED: 12/27/20 H&P UPDATE INFORMATION: I have reviewed H&P completed within last 30 days PREOP DIAGNOSIS: Symptomatic second-degree heart block PRIMARY INDICATION FOR PROCEDURE: As above PLANNED PROCEDURE: Temporary transvenous pacemaker Permanent dual-chamber pacemaker implantation PATIENT REASSESSED PRIOR TO SEDATION, WITH NO CHANGE NOTED: Yes PHYSICAL EXAM: alert, clear to auscultation bilaterally and regular rate & rhythm AIRWAY EVAL/ANESTHESIA PLAN: normal airway, see other exam findings, ASA II, Monitored Anesthesia, Local Anesthesia, Risks, benefits & alternatives of sedation and/or procedure discussed and Patient agrees to continue as planned
--- NOTE | 2020-12-27 19:26 | XRR_ITS ---
PROCEDURE INFORMATION: Exam: XR Chest Exam date and time: 12/27/2020 7:26 PM Age: 60 years old Clinical indication: Device placement; Cardiac pacemaker placement or adjustment; Prior surgery; Additional info: Post pacemaker, as upright as possible^remove al the leads and wires from the [id number] TECHNIQUE: Imaging protocol: XR of the chest. Views: 1 view. COMPARISON: CR XR chest 1V portable [id number] 12/26/2020 10:18 AM FINDINGS: Tubes, catheters and devices: Interval placement of a 2 lead pacer device within the right chest wall. Lungs: Unremarkable. No consolidation. Pleural spaces: Unremarkable. No pleural effusion. No pneumothorax. Heart/Mediastinum: Unremarkable. No cardiomegaly. Bones/joints: Unremarkable. XR/XR chest 1V portable [id number] IMPRESSION: No acute findings.
--- NOTE | 2020-12-27 19:27 | PC.NURSE ---
Arrived from laboratory development technician via bed, at bedside, patient AO x4 follows commands, R groin access site dressing clean dry and intact, dressing to R chest covering pace maker clean dry and intact, no c/o from patient at this time
--- NOTE | 2020-12-27 19:45 | PC.NURSE ---
Dr. Dunham called and asked condition of patent, gave t.o. to stop D5 0.45% Saline and start NS at 75 ml/hr
--- NOTE | 2020-12-27 19:48 | P.OP_ITS ---
Operative Report Date of procedure: December 27, 2020 Pre-op Diagnosis: Symptomatic second-degree heart block Procedure: LOCATION: ICU PREOPERATIVE DIAGNOSES: Symptomatic bradycardia/high degree AV block. POSTOPERATIVE DIAGNOSES: Same. COMPLICATIONS: None. ESTIMATED BLOOD LOSS: Around less than 5 milliliters. BRIEF HISTORY: This is a 60-year-old white male who is admitted to hospital with complaints of dizziness/weakness/slow heart rate. He was found to be in second- degree type II AV block with intermittent third-degree heart block. No reversible causes were identified. For further management of his condition, a permanent pacer implantation was requested. A dual-chamber permanent pacemaker implantation was recommended for symptom relief and AV synchrony The procedure was explained to the patient in detail with the risks and benefits. The risks of bleeding, hematoma, vascular injury, infection, pneumothorax, myocardial perforation and other concomitant complications were explained in detail, which the patient understood well and consented to proceed. PROCEDURE DESCRIPTION: The patient was brought to the Cardiac Catheterization Lab. The left and the right side of the neck and the subclavian area were minerva sheryl and draped in a sterile fashion. 1% Xylocaine was used as the local anesthetic agent. A left subclavian venous access was obtained using a micropuncture needle system. Under venographic guidance, the patient was injected with 20 milliliters of Omnipaque through the left antecubital vein. A two-inch long incision was made 2.0 centimeters below the midclavicular region. By sharp and blunt dissection, a pacemaker pocket was made. A second venous access was obtained using another micropuncture needle system. Over the first guidewire, a 7-Norwegian venous sheath with dilator was advanced. The venous dilator and the guidewire were taken out. A screw-in ventricular lead was advanced through the venous sheath and was positioned towards the right ventricle. Under fluoroscopy guidance, the ventricular lead was positioned toward the right ventricular apex. Good pacing and sensing thresholds were obtained. The lead was secured to the endocardium by advancing the helix. The stability of the lead was tested by gentle twisting movements and also by asking the patient to take some deep breaths and cough. The venous sheath was peeled off, at this time. The lead was secured to the pectoralis fascia, by suturing with 1-0 Surgilon. Over the second guidewire, another 7-Norwegian venous sheath with dilator was advanced. The dilator and the guidewire were taken out. Under fluoroscopy guidance, an atrial lead (Medtronic), was advanced and positioned toward the right atrium. The lead was positioned in the right atrial appendage. Good pacing and sensing thresholds were obtained. The lead was secured to the endocardium by advancing the helix. Stability of the lead was tested by gentle twisting movements and also by asking the patient to take some deep breaths and cough. The venous sheath was peeled off, at this time. The lead was secured to the pectoralis fascia by suturing with 0-Surgilon. The pacemaker pocket was copiously irrigated with vancomycin solution. Complete hemostasis was achieved. Sponge counts were confirmed. The leads were attached to a Medtronic generator. The leads were positioned behind the generator and the generator was attached to the pectoralis fascia by suturing with 0-Surgilon. The pocket was closed in layers. Skin was approximated using 4-0 Vicryl. IMPLANTED DEVICES: ATRIAL LEAD: Model number: 5076/52 Serial number: [id number] Make: Medtronic VENTRICULAR LEAD: Model number: 5076/58 Serial number: [id number] Make: Medtronic GENERATOR Brand: [place] XT DR KARAN Mendiola Model number: [id number] Serial number: [id number] Make: Medtronic IMPLANTATION DATA: With the pacing system analyzer, the R wave sensing was 4.1 millivolts with a lead impedance of 665 and a pacing threshold was .5 volts at 0.4 milliseconds. In the atrium, the sensing was 3.1 millivolts with a lead impedance of 650 ohms and a pacing threshold was 0.6 volts at 0.4 milliseconds. Through the device, the R-wave sensing was 3.9 millivolts with a lead impedance of 625 ohms and a pacing threshold was 0.5 volts at 0.4 milliseconds. The atrial sensing was 3.2 millivolts with a lead impedance of 650 ohms and a pacing threshold of 0.6volts at 0.4 milliseconds. The pacemaker was set for AAIR/DDDR mode with upper rate of 130 and a lower rate of 60. A pressure dressing was applied over the pacemaker site. The patient was transferred to the Medical Floor in stable condition. A chest x-ray was ordered to confirm the lead position and also to rule out any pneumothorax.
[2020-12-27] MEDS: ondansetron 2 mg/ML SDV 2 mL 4 MG IVP (19:50)
[2020-12-28] VITALS (17 sets, daily range): BP systolic 102–136; BP diastolic 58–97; PULSE 58–65; RESP 12–20; TEMP 37.2; O2SAT 90–96
[2020-12-28 04:54] LABS: Basophils % 0.4 %; Eosinophils # 0.3 10^3/uL (0.0-0.8); Eosinophils % 4.9 %; Hematocrit 41.1 % (42.0-52.0); Hemoglobin 13.4 g/dL (11.7-16.6); Lymphocytes # 1.6 10^3/uL (0.8-4.8); Lymphocytes % 22.8 %; Mean Corpuscular HGB Conc 32.6 g/dL (30.0-36.0); Mean Corpuscular Hemoglobin 29.1 pg (28.0-34.0); Mean Corpuscular Volume 89.2 fl (80-94); Mean Platelet Volume 10.6 fL (7.4-10.4); Monocytes # 0.8 10^3/uL (0.2-0.9); Monocytes % 11.8 %; Neutrophils # 4.16 10^3/uL (1.8-7.7); Nucleated Red Blood Cells % 0 %; Platelet Count 195 10^3/cmm (130-400); Red Blood Count 4.61 10^6/uL (4.1-5.3); Red Cell Distribution Width 13.9 % (12.1-15.1); White Blood Count 6.9 10^3/uL (4.0-10.0)
[2020-12-28 05:11] LABS: Alanine Aminotransferase 24 U/L (0-41); Albumin Level 3.2 g/dL (3.5-5.2); Alkaline Phosphatase 59 IU/L (40-130); Anion Gap 9.2 (5-19); Aspartate Amino Transferase 16 U/L (0-40); Blood Urea Nitrogen 23 mg/dL (8-23); Calcium 7.8 mg/dL (8.5-10.5); Carbon Dioxide 27 mmol/L (22-29); Chloride 108 mmol/L (98-107); Creatinine Clr Calc Pharmacy 122.6256; Globulin 2.8 g/dL (1.3-4.6); Glomerular Filtration Rate 98.6 mL/min (90-130); Glucose 97 mg/dL (65-115); Osmolality Calculated 294 mOsm/kg (285-295); Potassium 4.2 mmol/L (3.5-5.1); Sodium 140 mmol/L (136-145); Total Bilirubin 0.2 mg/dL (0.15-1.2)
--- NOTE | 2020-12-28 06:00 | ECG_ITS ---
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 Measurements Intervals [place] Rate: 60 P: 256 OK: 182 QRS: -57 QRSD: 189 T: 85 QT: 501 QTc: 503 Interpretive Statements ELECTRONIC ATRIAL PACEMAKER ELECTRONIC VENTRICULAR PACEMAKER ABNORMAL RHYTHM ECG Compared to ECG 12/26/2020 16:09:31 Sinus bradycardia no longer present Right bundle-branch block no longer present Electronically Signed On 12-28-2020 21:07:52 CDT by Miguel Angel Mcdowell M.D. [id number]
--- NOTE | 2020-12-28 08:20 | PC.OT ---
OT orders received. Will hold evaluation until bedrest orders are lifted.
--- NOTE | 2020-12-28 11:40 | PM.PN ---
Subjective Subjective: Interval history: Patient is feeling okay with no hematoma or bleeding. Chest x-ray after the pacemaker shows no evidence of pneumothorax. Atrial and ventricular leads are appropriately placed. Pacemaker interrogation today shows good pacing and sensing function. Vitals/I&O/Wt Last Vital Signs Temp 99.0 F 12/28/20 08:00 Pulse 61 12/28/20 09:00 Resp 20 H 12/28/20 09:00 BP 134/97 12/28/20 09:00 Pulse Ox 96 12/28/20 09:00 12/27/20 12/28/20 12/28/20 22:59 06:59 14:59 Intake Total 161.044 / 753.676 60 / 813.676 360 / 360 Output Total 550 / 2100 800 / 800 Balance 161.044 / -796.324 -490 / -1286.324 -440 / -440 Physical Exam Narrative: EXAM NARRATIVE: GENERAL: The patient is alert and oriented times three. Not in any acute distress. HEENT: Unremarkable NECK: Trachea appears to be central. No masses noted. No JVD or thyromegaly appreciated. RESPIRATORY: Breath sounds heard bilaterally with no rales or rhonchi. BREASTS: Deferred. Pacemaker site has no hematoma or bleeding HEART: The heart sounds are normal. No S3 or S4. No significant murmurs. No pericardial rub ABDOMEN: No vessel pulsations or distention. No tenderness. No organomegaly appreciated. Bowel sounds are normally heard. : Deferred. RECTAL: Deferred. EXTREMITIES: No edema or cyanosis. Data : 12/28/20 04:24 12/28/20 04:24 A&P Assessment and plan (1) Presence of permanent cardiac pacemaker: Patient status post dual-chamber permanent pacer implantation. Functioning well with no complications. Status: Acute Additional A&P Information Patient may be started on Keflex 500 mg p.o. every 6 hours for 5 days along with multivitamins 1 tablet daily. Post pacemaker instructions are given. Appointment the [facility] to be seen by the nurse practitioner in 1 week for a wound check and pacemaker check Appointment with Dr. Aguilera in 4 weeks Attestations Medical Necessity Statement*: Possible discharge home today Coding Level of Care Code Acute Hr Administrator for Chg Fwd Diagnoses Presence of permanent cardiac pacemaker Z95.0
--- NOTE | 2020-12-28 12:51 | P.DS_ITS ---
Discharge Providers Date of Admission: 12/26/20 10:27 Date of Discharge: December 28, 2020 Attending Provider at Admission: Lana Aguilera MD Attending Provider at Discharge: Lana Aguilera MD Primary Care Provider: Jose Roberto Carlson DO Diagnoses at Discharge Discharge Diagnosis (1) Presence of permanent cardiac pacemaker: Status: Acute Reason for Visit Reason for Visit: Low BP & Pulse, Lightheaded Brief History: Be Sim is a 60 year old male with past medical history of hypertension, TAMIKO on CPAP for last 6-7 years, depression and right eye blindness presented to the ER with 2-week history of feeling tired and fatigue and 4-day history of feeling dizzy and lightheaded especially on standing up. Patient's blood pressure usually ranges from 103-143/49-76 mmHg and heart rate ranges from 49 to 58 bpm. He takes valsartan 40 mg for hypertension but for the last 4 days his blood pressure was running lower and he did not take his valsartan. Heart rate has been ranging from 3243 bpm for the last 4 days. He has no prior history of coronary artery disease, congestive heart failure, history of CVA or TIA. No prior history of thyroid problems or any recent illness. He denies any URI or UTI-like symptoms on arrival. No chest pain, leg swelling dyspnea on exertion orthopnea or paroxysmal nocturnal dyspnea. Patient has been on citalopram for depression for a long time and was also taking pentoxifylline 400 mg twice a day for suspected Peyronie's disease for 2 months which he quit 2 weeks back. 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 On arrival to the ER he was found to be bradycardic with heart rate in 20s. EKG showed sinus bradycardia with 2:1 AV block at 29 bpm. Right bundle branch block. Initial labs including WBC, electrolytes, troponin T and renal function was within normal limits. He was started on dopamine at 3 that was increased to 5 mcg/kg/min. blood pressure on arrival 139/89 mmHg. He has been vaccinated with 2 doses of [place] COVID-19 vaccine in September and October. No recent sick contacts or prior COVID-19 infection. He is a former smoker and currently chews tobacco 1 can/day. He drinks 1-2 beers every night. No illict drug use. Family h/o sudden in father in his 70's. Paternal GF with heart issues . Three of his paternal aunts with PPM per patient. Hospital Course Hospital Course Patient was started on dopamine gtt at 10. TSH normal. Rapid COVID-19 antigen negative. Echo with normal LV function and regional wall motion abnormalities. Patient's HR ranging high 20's to 50. Rhythm remains in 2:1 AV block; High likelihood of Mobitz type 2. Dr. Dunham was consulted for permanent pacemaker placement for symptomatic second-degree 2:1 AV block/ high-grade AV block. Rap id Covid antigen testing and Covid PCR came back negative. Patient underwent successful Medtronic dual-chamber permanent pacemaker placement by Dr. Dunham. Device was set at DDDR 60/130/130. Patient tolerated the procedure well. Chest x-ray postprocedure showed normal lead placement. EKG showed AV sequential pacing. Device was interrogated and showed a paced 90% and V paced 99.9% of the time. Atrial lead impedance of 513 ohms and right ventricular lead impedance of 532 ohms. I will consider outpatient titration study if patient has symptoms of fatigue as an outpatient. Physical Exam Narrative: EXAM NARRATIVE: GENERAL: Averagely built and averagely nourished in no acute distress HEENT: Right eye ocular prosthesis. No pallor or icterus. NECK: No JVD, No carotid bruit. CARDIOVASCULAR SYSTEM: S1-S2 regular. bradycardia+, No murmur appreciated RESPIRATORY SYSTEM: Chest clear to auscultation. No wheezes rhonchi or rubs heard. No use of accessory muscles. Right upper chest pressure dressing was removed. No significant bruising or hematoma ABDOMEN: Soft, nontender and nondistended. Normal bowel sounds present. EXTREMITIES: No cyanosis or clubbing. No edema. Right groin with no significant bruising or hematoma CONTRACT ADMINISTRATION COORDINATOR: Patient is alert oriented ?3. No focal neurological deficits. SKIN: Normal turgor and temperature. PSYCH: Normal insight and judgment. 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 echo wo/w con trast [id number] Routin e Ultrasound 12/26/20 10:50 Completed # TTE (12/26/20) CONCLUSIONS 1. This is a technically difficult study. Ultrasound enhancing agent Optison was used per protocol. 2. Normal left ventricular size, systolic function and wall thickness, with no regional wall motion abnormalities. Left ventricular ejection fraction is estimated at 70 %. 3. Normal right ventricular size and systolic function. 4. Mild mitral valve regurgitation. 5. No prior similar studies to compare. Pending at discharge Category Date Time Status Comprehensive Met abolic Panel AM LA BS Lab 12/29/20 04:00 Ordered Labs from last 24 hours 12/28/20 12/28/20 12/26/20 04:24 04:24 14:30 WBC 6.9 RBC 4.61 Hgb 13.4 Hct 41.1 L MCV 89.2 MCH 29.1 MCHC 32.6 RDW 13.9 Plt Count 195 MPV 10.6 H Neut % (Auto) 60.0 Lymph % (Auto) 22.8 [place] % (Auto) 11.8 Eos % (Auto) 4.9 Baso % (Auto) 0.4 Neut # (Auto) 4.16 Lymph # (Auto) 1.6 [place] # (Auto) 0.8 Eos # (Auto) 0.3 Baso # (Auto) 0.0 Nucleated RBC % (a uto) 0 Nucleated RBCs # 0.0 Sodium 140 Potassium 4.2 Chloride 108 H Carbon Dioxide 27 Anion Gap 9.2 BUN 23 Creatinine 0.8 GFR Calculation 98.6 Glucose 97 Calculated Osmolal ity 294 Calcium 7.8 L Total Bilirubin 0.2 AST 16 ALT 24 Alkaline Phosphata se 59 Total Protein 6.0 L Albumin 3.2 L Globulin 2.8 Nasal/Oral COVID-1 9 PCR Not detected Vitals: Last Vital Signs Temp 99.0 F 12/28/20 08:00 Pulse 61 12/28/20 09:00 Resp 20 H 12/28/20 09:00 BP 134/97 12/28/20 09:00 Pulse Ox 96 12/28/20 09:00 Discharge Plan Discharge Patient Disposition: Home Condition: Stable Prescriptions: New cephalexin 500 mg capsule 500 mg PO QID Qty: 20 RF: 0 hydrocodone-acetaminophen 5-325 mg tablet 1 tab PO Q8H PRN (Reason: pain) Qty: 14 RF: 0 multivitamin Tablet 1 tab PO DAILY 14 Days Qty: 14 RF: 0 Continued citalopram 40 mg tablet 40 mg PO DAILY RF: 0 Zyrtec 10 mg Tablet 10 mg PO DAILY RF: 0 Discontinued pentoxifylline 400 mg tablet extended release 400 mg PO BID RF: 0 Discharge Orders: Discharge Order (Routine); Ordered 12/28/20 Ordered By: Lana Aguilera Referrals: Andres Trammell FNP [Nurse Practitioner] - 7-10 days (Post pacemaker follow up) Lana Aguilera MD [Physician] - 1 week (THIS FOLLOW UP APPOINTMENT HAS BEEN SCHEDULED FOR 1 WEEK FOLLOW UP FOR PACEMAKER WOUND CHECK,NEW PACEMAKER /HOSPITAL FOLLOW UP WITH ASSOCIATE EDITOR NURSE ANDRES TRAMMELL FOR DATE OF JANUARY 04, 2021 AT 1045) Discharge Diet: Cardiac Discharge Activity: Limit activity as instructed Patient Instructions: Cephalexin (By mouth), Hydrocodone/Acetaminophen (By mouth) (Vicodin, [place], Lortab), Hypertension, Pacemaker (DC), Opioid Safety, Post Pacemaker - Roly Activity Restrictions/Additional Instructions: With the movements of the right shoulder to 45 degrees. Avoid any weight lifting with the right hand of more than 5 pounds for the next 6 weeks Keep the pacemaker site clean and dry Appointment the [facility] with the nurse practitioner in 1 week Appoint with 4-6 weeks Discharge Attestations Time Spent in Discharge Care*: greater than 30 min Specific Discharge Activities: educating patient, educating and/or supporting family/caregiver, discussing with pcp/other providers, documenting/other paperwork and evaluating patient/reviewing data Quality Metrics Clinical Quality Measures During this hospital stay, did patient experience: None Coding Level of Care Code Acute Chg FW DC note Diagnoses Presence of permanent cardiac pacemaker Z95.0
--- NOTE | 2020-12-29 07:51 | PC.OT ---
OT EVALUATION NOT COMPLETED DUE TO PATIENT DISCHARGE. WAS ON BEDREST PREVIOUSLY AND EVALUATION UNABLE TO BE COMPLETED.
--- NOTE | 2020-12-31 09:10 | PC.SOCIAL ---
discharge follow up call made. spoke with patient. he reports he is feeling fine. patient denies having to use any pain medications. picked up cephalexin, hydrocodone and multi vitamin from the pharmacy. he is taking as prescribed, just hasn't had to take the hydrocodone. patient reports pace maker insertion site is clean and dry and free from redness. patient is aware of follow up appointment with sandeep platt and will make that appointment. patient is maintaining the weight restriction of 5 lbs to right arm for 6 weeks. patient denies questions or concerns.
== END 2020-12-28 13:00 | disposition home or self-care (01) | DRG 244 ==
LOC: ER 10:08 → ICU 10:39
PROVIDERS: Internal Medicine Cardiovascular Disease; Admitting Provider Internal Medicine Cardiovascular Disease; Emergency Provider Family Medicine; PCP Family Medicine; Visit Provider Internal Medicine Cardiovascular Disease
PROC: 0JH606Z Insertion of Pacemaker, Dual Chamber into Chest Subcutaneous Tissue and Fascia, Open Approach (ICD-10-PCS; principal; 2020-12-27 16:30)
DX: I44.1 Atrioventricular block, second degree (principal); F32.9 Major depressive disorder, single episode, unspecified; I10 Essential (primary) hypertension; N48.6 Induration penis plastica; F17.220 Nicotine dependence, chewing tobacco, uncomplicated; H54.40 Blindness, one eye, unspecified eye; G47.33 Obstructive sleep apnea (adult) (pediatric)
CPT/HCPCS: 33208; 36415; 71045; 80053; 80061; 81003; 83036; 84443; 84484; 85025; 85610; 87426; 87635; 93005; 96365; 96366; 96372; 96375; 99285; C1769; C1779; C1786; C1894; C8929; J0690; J1265; J1650; J2250; J2405; J3010; J7030; J7050; Q9956; Q9967

== ENCOUNTER → 2021-01-15 14:29 | Outpatient (BNVA) | payer OTHER, SELFPAY | PROVIDERS: PCP Internal Medicine; Visit Provider Urology | DX: N48.6 Induration penis plastica (principal) | CPT/HCPCS: 81003 ==

== ENCOUNTER → 2021-11-19 13:23 | Outpatient (BNVA) | payer OTHER, SELFPAY | PROVIDERS: PCP Internal Medicine; Visit Provider Urology | DX: N48.6 Induration penis plastica (principal) | CPT/HCPCS: 81003 ==

== ENCOUNTER 2022-02-09 10:54 | Emergency (ER) | payer OTHER, SELFPAY ==
[2022-02-09] VITALS (11 sets, daily range): BP systolic 116–157; BP diastolic 76–94; PULSE 60–67; RESP 15–19; TEMP 36.6; O2SAT 98; BMI 29.8
--- NOTE | 2022-02-09 11:03 | ECG_ITS ---
[facility] Test Date: 2022-02-09 Pat Name: Be Sim Department: Room: Gender: Male Senior Information Security Consultant: : 1960 Requested By: Rajan Santiago Order Number: [id number] Derrick MD: Savi Dunham M.D. Measurements Intervals Walker Rate: 63 P: 149 ID: [id number] QRS: -40 QRSD: 178 T: 88 QT: 432 QTc: 443 Interpretive Statements ELECTRONIC ATRIAL PACEMAKER ELECTRONIC VENTRICULAR PACEMAKER ABNORMAL RHYTHM ECG Compared to ECG 12/28/2020 06:22:46 No significant changes Electronically Signed On 02-09-2022 22:17:28 KEYLINER by Savi Dunham M.D. [id number]
--- NOTE | 2022-02-09 11:16 | XRR_ITS ---
PROCEDURE INFORMATION: Exam: XR Chest Exam date and time: 02/09/2022 12:26 PM Age: 61 years old Clinical indication: Pain; Chest pressure; Prior surgery; Surgery type: Pacemaker; Additional info: Cp TECHNIQUE: Imaging protocol: Radiologic exam of the chest. Views: 1 view. COMPARISON: CR XR chest 1V portable [id number] 12/27/2020 7:29 PM FINDINGS: Tubes, catheters and devices: Cardiac rhythm maintenance device is in place. Lungs: Unremarkable. No consolidation. Pleural spaces: Unremarkable. No pleural effusion. No pneumothorax. Heart/Mediastinum: Unremarkable. No cardiomegaly. Bones/joints: Unremarkable. XR/XR chest 1V portable [id number] IMPRESSION: No acute cardiopulmonary abnormality.
[2022-02-09 11:30] LABS: Basophils # 0.1 10^3/uL (0.0-0.1); Basophils % 1.2 %; Eosinophils # 0.2 10^3/uL (0.0-0.8); Eosinophils % 5.1 %; Hematocrit 43.2 % (42.0-52.0); Hemoglobin 14.2 g/dL (11.7-16.6); Lymphocytes # 1.5 10^3/uL (0.8-4.8); Mean Corpuscular HGB Conc 32.9 g/dL (30.0-36.0); Mean Corpuscular Hemoglobin 29.4 pg (28.0-34.0); Mean Corpuscular Volume 89.4 fl (80-94); Mean Platelet Volume 9.6 fL (7.4-10.4); Monocytes # 0.6 10^3/uL (0.2-0.9); Monocytes % 13.9 %; Neutrophils # 1.92 10^3/uL (1.8-7.7); Neutrophils % 44.6 %; Nucleated Red Blood Cells % 0 %; Platelet Count 227 10^3/cmm (130-400); Red Blood Count 4.83 10^6/uL (4.1-5.3); Red Cell Distribution Width 13.3 % (12.1-15.1); White Blood Count 4.3 10^3/uL (4.0-10.0)
[2022-02-09 11:52] LABS: Alanine Aminotransferase 19 U/L (0-41); Albumin Level 3.9 g/dL (3.5-5.2); Alkaline Phosphatase 62 U/L (40-130); Anion Gap 12.2 (5-19); Aspartate Amino Transferase 24 U/L (0-40); Blood Urea Nitrogen 21 mg/dL (8-23); Calcium 8.8 mg/dL (8.5-10.5); Carbon Dioxide 28 mmol/L (22-29); Chloride 105 mmol/L (98-107); Glomerular Filtration Rate 98.3 mL/min (90-130); Glucose 86 mg/dL (65-115); Osmolality Calculated 294 mOsm/kg (285-295); Potassium 4.2 mmol/L (3.5-5.1); Sodium 141 mmol/L (136-145); Total Bilirubin 0.4 mg/dL (0.15-1.2); Total Protein 6.9 g/dL (6.6-8.7)
[2022-02-09 11:54] LABS: Troponin(5th) Baseline 8 ng/L (0-15)
--- NOTE | 2022-02-09 11:55 | ED_ITS ---
HPI - Chest Pain General: Chief Complaint: Chest Pain Stated Complaint: Chest Pain Time Seen by Provider: 02/09/22 11:16 Source: patient and family Mode of arrival: ambulatory Limitations: no limitations History of Present Illness: This patient presents to our emergency department because of chest pain. He states he noted this chest pain this morning when he awoke. He states it is left-sided dull and constant. He states there is some radiation to his left shoulder blade. He denies concomitant shortness of breath nausea diaphoresis. He states he is not had this pain before. 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 He denies any new or changing physical activity or known injury. He states it does not feel like a muscle strain. He has a tobacco user but denies any cough fevers or recent illness. He has an electronic pacemaker that was placed 1 year ago for sick sinus syndrome but has had no issues with that since placement. He does relate that on occasion when he is out working he feels short of breath and also notes that he gets a little winded when he walks up a flight of stairs. He takes valsartan for hypertension. He has no other significant past medical history. Pain is not ripping or tearing and not associated with any changes in position. MD complaint: chest heaviness Timing of current episode: constant Onset: during rest Pain location: left chest Pain radiation: left scapula Severity: mild Quality: heaviness Exacerbating factors: nothing Associated symptoms: Reports no associated symptoms; Deny abdominal pain, dyspnea, fever(s), nausea, palpitations, syncope or vomiting Risk Factors: Coronary artery disease risk factors: smoking history and hypertension Review of Systems Const: Denies: fever(s) or chills Eyes: Denies: change in vision ENMT: Denies: throat pain, odynophagia, ear discharge, nasal discharge or nasal congestion Card: Reports: chest pain; Denies: palpitations, syncope or pre-syncope Resp: Denies: dyspnea, productive cough or non-productive cough GI: Denies: abdominal pain, nausea, vomiting or diarrhea : Denies: flank pain, difficulty urinating, dysuria or urinary frequency Musc: Denies: neck pain, extremity pain or extremity swelling Skin/Breast: Denies: rash Neuro: Denies: headache(s), numbness in extremities or weakness in extremities Endo: Denies: polyuria or polydipsia PFSH ED PFSH: Medical History Depression HTN (hypertension) Peyronie disease RBBB Surgical History H/O arthroscopic knee surgery Previous back surgery Family History Father , AT AGE 74 Heart abnormality Mother , IN HER 70'S COPD (chronic obstructive pulmonary disease) Social History Smoking and tobacco status: never smoked Alcohol intake: current Alcohol intake frequency: few times a week Marital status: Current occupational status: employed History of recent travel: No Physical Exam Narrative: EXAM NARRATIVE: Healthy individual who appears to be in no acute distress. Answers questions appropriately. Const: COMMON NORMALS: no acute distress, average body habitus and patient oriented x3 GENERAL APPEARANCE: cooperative and comfortable HENMT: COMMON NORMALS: normocephalic, Normal nasal mucous membranes and turbinates present, moist oral mucous membranes and oropharynx normal HEAD & SCALP: normocephalic NOSE: Normal nasal mucous membranes and turbinates present Eye: COMMON NORMALS: Equal, round and reactive pupils present and EOMs intact bilaterally (Extraocular muscles intact OD; OS is a prosthetic eye) PUPIL: Yes Equal, round and reactive pupils present Neck/C-Spine: COMMON NORMALS: full ROM, no JVD and No carotid bruits Chest: COMMONS NORMALS: normal inspection of the chest and normal palpation of entire chest wall Resp: COMMON NORMALS: normal respiratory effort, No retractions, No use of a ccessory muscles and clear to auscultation bilaterally AUSCULTATION: clear to auscultation bilaterally Cardio: COMMON NORMALS: no JVD, regular rate, regular rhythm, No murmurs present (Cardio) and Peripheral pulses 2+ throughout RATE: regular rate RHYTHM: regular rhythm PERIPHERAL PULSES: Peripheral pulses 2+ throughout GI: COMMON NORMALS: Normal to inspection, nondistended, normoactive bowel sounds present, Soft to palpation, non-tender and no bruits PALPATION: Yes Soft to palpation : COMMON NORMALS: Yes no CVA tenderness BLADDER/KIDNEY EXAM: Yes no CVA tenderness Back/Pelvis: COMMON NORMALS: no CVA tenderness, thoracic and lumbar spine normal to inspection, no thoracic nor lumbar tenderness, thoraco-lumbar ROM normal and straight leg raise negative bilaterally Extremity: COMMON NORMALS: normal to inspection, full ROM, capillary refill normal, no joint enlargement, no clubbing, cyanosis or edema, no calf tenderness and no pedal edema Neuro: COMMON NORMALS: patient oriented x3, moves all extremities, no focal motor deficits and no sensory deficits noted CRANIAL NERVES: Yes CN normal except as noted Psych: COMMON NORMALS: mental status grossly normal Skin: COMMON NORMALS: no rashes or lesions noted, turgor normal and no petechiae GENERAL SKIN EXAM: no rashes or lesions noted and turgor normal Course Reevaluation(s): Reevaluation #1: Patient remained stable without any new or focal findings on reevaluation. Vital signs have been reviewed and they are variance stable throughout the emergency department stay. He is remained in a paced rhythm without any ectopy, other arrhythmias etc. We spent time discussing his current findings their implications, limitations and need for further evaluation. Certainly no evidence at this time of ACS, great vessel issues etc. 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 We also discussed monitoring his blood pressure expected responses to activity and need to contain due diligence to with regards to his follow-up. All questions were answered. Stable for discharge. They were appreciative of care. 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 Clinical examination did did not find any concerns that suggested an obvious etiology. Due diligence was gauged with his work-up today to include serial biomarkers, serial EKGs, other ancillary testing, monitoring as well as imaging to include a CTA. No evidence to suggest a ongoing emergency medical condition, ACS, PE, aortic dissection, aneurysm or other concerning condition. 1 suspect possible musculoskeletal etiology but that is speculation and that was shared in detail with patient and spouse. We discussed the need for primary care follow-up with consistent consideration of provocative testing. We also reviewed return precautions. Medical Records I reviewed the patient's medical records. Lab Data : 02/09/22 11:13 02/09/22 11:13 Radiology Impressions Chest X-Ray 02/09/22 11:16 IMPRESSION: No acute cardiopulmonary abnormality. Chest CT 02/09/22 13:27 IMPRESSION: No acute findings.Non acute findings as described above. COMMENTS: Consistent with the [employer]'s Incidental Findings Committee white paper (J Am Stacy Radiol 2018): Any incidental renal lesion less than 1 cm or classified as too small to characterize, or any incidental cystic renal lesion characterized as simple-appearing, is likely benign. No follow-up imaging is recommended for these lesions per consensus recommendations based on imaging criteria. Laboratory Results WBC 4.3 10^3/uL (4.0-10.0) 02/09/22 11:13 RBC 4.83 10^6/uL (4.1-5.3) 02/09/22 11:13 Hgb 14.2 g/dL (11.7-16.6) 02/09/22 11:13 Hct 43.2 % (42.0-52.0) 02/09/22 11:13 MCV 89.4 fl (80-94) 02/09/22 11:13 MCH 29.4 pg (28.0-34.0) 02/09/22 11:13 MCHC 32.9 g/dL (30.0-36.0) 02/09/22 11:13 RDW 13.3 % (12.1-15.1) 02/09/22 11:13 Plt Count 227 10^3/cmm (130-400) 02/09/22 11:13 MPV 9.6 fL (7.4-10.4) 02/09/22 11:13 Neut % (Auto) 44.6 % 02/09/22 11:13 Lymph % (Auto) 35.0 % 02/09/22 11:13 [place] % (Auto) 13.9 % 02/09/22 11:13 Eos % (Auto) 5.1 % 02/09/22 11:13 Baso % (Auto) 1.2 % 02/09/22 11:13 Neut # (Auto) 1.92 10^3/uL (1.8-7.7) 02/09/22 11:13 Lymph # (Auto) 1.5 10^3/uL (0.8-4.8) 02/09/22 11:13 [place] # (Auto) 0.6 10^3/uL (0.2-0.9) 02/09/22 11:13 Eos # (Auto) 0.2 10^3/uL (0.0-0.8) 02/09/22 11:13 Baso # (Auto) 0.1 10^3/uL (0.0-0.1) 02/09/22 11:13 Nucleated RBC % (auto) 0 % 02/09/22 11:13 Nucleated RBCs # 0.0 /100WBC 02/09/22 11:13 D-Dimer 0.56 ug/mIFEU (0-0.59) 02/09/22 11:13 Sodium 141 mmol/L (136-145) 02/09/22 11:13 Potassium 4.2 mmol/L (3.5-5.1) 02/09/22 11:13 Chloride 105 mmol/L (98-107) 02/09/22 11:13 Carbon Dioxide 28 mmol/L (22-29) 02/09/22 11:13 Anion Gap 12.2 (5-19) 02/09/22 11:13 BUN 21 mg/dL (8-23) 02/09/22 11:13 Creatinine 0.8 mg/dL (0.7-1.2) 02/09/22 11:13 GFR Calculation 98.3 mL/min (90-130) 02/09/22 11:13 Glucose 86 mg/dL (65-115) 02/09/22 11:13 Calculated Osmolality 294 mOsm/kg (285-295) 02/09/22 11:13 Calcium 8.8 mg/dL (8.5-10.5) 02/09/22 11:13 Total Bilirubin 0.4 mg/dL (0.15-1.2) 02/09/22 11:13 AST 24 U/L (0-40) 02/09/22 11:13 ALT 19 U/L (0-41) 02/09/22 11:13 Alkaline Phosphatase 62 U/L (40-130) 02/09/22 11:13 Troponin T Baseline 8 ng/L (0-15) 02/09/22 11:13 Troponin T 120 Minute 7.39 ng/L (0-15) 02/09/22 13:30 Delta Troponin T -0.61 ABS# (0-10) L 02/09/22 13:30 Total Protein 6.9 g/dL (6.6-8.7) 02/09/22 11:13 Albumin 3.9 g/dL (3.5-5.2) 02/09/22 11:13 Globulin 3.0 g/dL (1.3-4.6) 02/09/22 11:13 EKG Data EKG 1: I personally reviewed and interpreted this EKG as follows: Interpretation: He has a electronically paced rhythm of 63 bpm. Expected bundle branch block pattern from his paced rhythm. No excessive concordant or discordant ST segme nts noted. Discharge Plan Discharge Patient Disposition: Home Clinical Impression: Chest pain Condition: Stable Prescriptions: No Action valsartan 40 mg tablet 80 mg PO DAILY loratadine [Claritin] 10 mg tablet 10 mg PO DAILY aspirin 325 mg Tablet 325 mg PO ONCE pentoxifylline 400 mg tablet extended release 400 mg PO TID Discharge Orders: Discharge ED (Routine); Ordered 02/09/22 Ordered By: Bandar Lei Referrals: Xiao Zapata MD [Primary Care Provider] - 4-7 days Discharge Diet: Usual diet and Low Salt Discharge Activity: Resume usual activity Patient Instructions: Opioid Safety, Pain Management Activity Restrictions/Additional Instructions: As we discussed no evidence of ongoing serious cause of chest pain today but we do recommend following up with your primary care physician and discussing additional work-up. Continue to monitor your blood pressure and take your usual medications. Continue to engage in normal activity. Should you develop any new, persistent, worsening symptoms return to this or the nearest emergency department for reevaluation. Coding Level of Care Code ED Numerical Control Machine Machinist for Chg Fwd Exam Comprehensive
[2022-02-09] MEDS: aspirin 81 mg Chew Tablet 324 MG PO (12:13)
[2022-02-09 12:20] LABS: D Dimer 0.56 ug/mIFEU (0-0.59)
--- NOTE | 2022-02-09 13:27 | CTR_ITS ---
PROCEDURE INFORMATION: Exam: CT Chest With Contrast; Diagnostic Exam date and time: 02/09/2022 1:34 PM Age: 61 years old Clinical indication: Pain; Angina pectoris; Prior surgery; Surgery type: Pacemaker; Additional info: Left chest pain TECHNIQUE: Imaging protocol: Diagnostic computed tomography of the chest with contrast. Radiation optimization: All CT scans at this facility use at least one of these dose optimization techniques: automated exposure control; mA and/or kV adjustment per patient size (includes targeted exams where dose is matched to clinical indication); or iterative reconstruction. Contrast material: OMNI 350; Contrast volume: 100 ml; Contrast route: INTRAVENOUS (IV); COMPARISON: CR (CHEST, ) 02/09/2022 12:26 PM RADIATION DOSE METRICS: Total DLP (mGy-cm): 623.08 FINDINGS: Tubes, catheters and devices: Two lead pacemaker device. Lungs: There are pulmonary parenchymal calcifications consistent with remote granulomatous organism exposure. Pleural spaces: Unremarkable. No pneumothorax. No pleural effusion. Heart: Unremarkable. No cardiomegaly. No pericardial effusion. Lymph nodes: There are calcified mediastinal and perihilar lymph nodes consistent with prior granulomatous exposure. Vasculature: No evidence for pulmonary embolus. Aorta is unremarkable without evidence for dissection or aneurysm. Kidneys and ureters: There is a 15 mm cyst with benign features in the left kidney. Bones/joints: There are degenerative changes in the visualized spine. Soft tissues: Unremarkable. CT/CT chest w con* [id number] IMPRESSION: No acute findings.Non acute findings as described above. COMMENTS: Consistent with the [employer]'s Incidental Findings Committee white paper (J Am Stacy Radiol 2018): Any incidental renal lesion less than 1 cm or classified as too small to characterize, or any incidental cystic renal lesion characterized as simple-appearing, is likely benign. No follow-up imaging is recommended for these lesions per consensus recommendations based on imaging criteria.
[2022-02-09] MEDS: iohexol 350 mg/mL 500 mL Btl (per mL) IV (13:38)
[2022-02-09 13:59] LABS: Troponin 5 2HR 7.39 ng/L (0-15)
[2022-02-09 14:43] LABS: Troponin 5 2HR Delta -0.61 ABS# (0-10)
== END 2022-02-09 15:14 | disposition home or self-care (01) ==
PROVIDERS: Emergency Provider Emergency Medicine; PCP Internal Medicine
DX: R07.9 Chest pain, unspecified (principal); I10 Essential (primary) hypertension
CPT/HCPCS: 71045; 71260; 80053; 84484; 85025; 85378; 93005; 99285; Q9967

== ENCOUNTER 2022-04-09 19:14 | Emergency (ER) | payer OTHER, SELFPAY ==
[2022-04-09 19:28] VITALS: BP 152/88; PULSE 67; RESP 18; TEMP 36.6; O2SAT 99; BMI 30.5
--- NOTE | 2022-04-09 19:45 | XRR_ITS ---
PROCEDURE INFORMATION: Exam: XR Chest Exam date and time: 04/09/2022 8:05 PM Age: 61 years old Clinical indication: Pain; Chest pressure; Surgery type: Pace maker; Additional info: Cp TECHNIQUE: Imaging protocol: Radiologic exam of the chest. Views: 1 view. COMPARISON: CT chest w con* [id number] 02/09/2022 1:34 PM FINDINGS: Tubes, catheters and devices: Stable right chest pacemaker. Lungs: Stable left hilar calcified granuloma. Lungs are clear. Pleural spaces: Unremarkable. No pleural effusion. No pneumothorax. Heart/Mediastinum: Stable heart size. Bones/joints: Unremarkable. XR/XR chest 1V portable [id number] IMPRESSION: No acute disease.
[2022-04-09 20:00] VITALS: BP 128/74; PULSE 62; RESP 17; O2SAT 98
[2022-04-09 20:06] LABS: Basophils # 0.1 10^3/uL (0.0-0.1); Basophils % 0.7 %; Eosinophils # 0.2 10^3/uL (0.0-0.8); Eosinophils % 2.2 %; Hemoglobin 13.6 g/dL (11.7-16.6); Lymphocytes # 2.2 10^3/uL (0.8-4.8); Lymphocytes % 30.5 %; Mean Corpuscular HGB Conc 32.4 g/dL (30.0-36.0); Mean Corpuscular Hemoglobin 28.9 pg (28.0-34.0); Mean Corpuscular Volume 89.2 fl (80-94); Mean Platelet Volume 9.7 fL (7.4-10.4); Monocytes # 0.7 10^3/uL (0.2-0.9); Monocytes % 9.6 %; Neutrophils # 4.15 10^3/uL (1.8-7.7); Neutrophils % 56.9 %; Nucleated Red Blood Cells % 0 %; Platelet Count 215 10^3/cmm (130-400); Red Blood Count 4.71 10^6/uL (4.1-5.3); Red Cell Distribution Width 13.4 % (12.1-15.1); White Blood Count 7.3 10^3/uL (4.0-10.0)
[2022-04-09 20:25] LABS: Troponin(5th) Baseline 8 ng/L (0-15)
[2022-04-09 20:26] LABS: Blood Urea Nitrogen 19 mg/dL (8-23); Carbon Dioxide 29 mmol/L (22-29); Chloride 104 mmol/L (98-107); Glomerular Filtration Rate 114.6 mL/min (90-130); Glucose 111 mg/dL (65-115); Osmolality Calculated 297 mOsm/kg (285-295); Sodium 142 mmol/L (136-145)
[2022-04-09 20:30] VITALS: BP 119/71; PULSE 60; RESP 17; O2SAT 96
[2022-04-09 20:43] LABS: Anion Gap 12.7 (5-19)
[2022-04-09 20:49] LABS: Potassium 3.7 mmol/L (3.5-5.1)
--- NOTE | 2022-04-09 20:49 | ED_ITS ---
HPI - Chest Pain General: Chief Complaint: Chest Pain Stated Complaint: cp Time Seen by Provider: 04/09/22 20:02 Source: patient and family Mode of arrival: ambulatory Limitations: no limitations History of Present Illness: This patient comes to the emergency department because of the left shoulder and left back pain that [id number] mg pills. October 2020 which showed nons squamous cell yesterday evening and has continued throughout the day today. He states that he has not had any associated diaphore sis, shortness of breath or other symptoms associated with his discomfort. He states that does not seem to change with deep breaths etc. 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 He does not recall any event of physical activity that may have exacerbated or caused the onset of his symptoms. He had a prior history of complete heart block and had a pacemaker placed approximately 16 months ago. He also was seen in this emergency department in January of last year for episode of chest pain with a negative work-up at that time. He does have a history of hypertension as well but has been faithful to all his medications. He denies any recent fevers cough etc. Severity: moderate Quality: aching and dull Associated symptoms: Deny abdominal pain, dyspnea, fever(s), palpitations, syncope or vomiting Risk Factors: Coronary artery disease risk factors: hypertension Review of Systems Const: Denies: fever(s) or chills Eyes: Denies: change in vision ENMT: Denies: throat pain, odynophagia or nasal discharge Card: Reports: chest pain; Denies: palpitations, irregular heart rhythm, edema, syncope or pre-syncope Resp: Denies: dyspnea, productive cough, non-productive cough or wheezing GI: Denies: abdominal pain, vomiting or diarrhea : Denies: flank pain, difficulty urinating, dysuria or urinary frequency Musc: Reports: back pain and extremity pain (Left shoulder); Denies: neck pain Skin/Breast: Denies: rash Neuro: Denies: headache(s), numbness in extremities or weakness in extremities [facility] ED PFSH: Medical History Depression HTN (hypertension) Peyronie disease RBBB Surgical History H/O arthroscopic knee surgery Previous back surgery Family History Father , AT AGE 74 Heart abnormality Mother , IN HER 70'S COPD (chronic obstructive pulmonary disease) Social History Smoking and tobacco status: never smoked Alcohol intake: current Alcohol intake frequency: few times a week Marital status: Current occupational status: employed History of recent travel: No Physical Exam Narrative: EXAM NARRATIVE: Makes good eye contact speech is goal-directed responds appropriately to questions. Const: COMMON NORMALS: no acute distress, average body habitus and patient oriented x3 GENERAL APPEARANCE: cooperative and comfortable HENMT: COMMON NORMALS: normocephalic, atraumatic, Normal nasal mucous membranes and turbinates present, moist oral mucous membranes and oropharynx normal HEAD & SCALP: normocephalic and atraumatic NOSE: Normal nasal mucous membranes and turbinates present Eye: COMMON NORMALS: Equal, round and reactive pupils present (Prosthetic eye right) and conjunctivae normal CONJUNCTIVA: Yes conjunctivae normal PUPIL: Yes Equal, round and reactive pupils present (Prosthetic eye right) Neck/C-Spine: COMMON NORMALS: full ROM and no lymphadenopathy Chest: COMMONS NORMALS: normal inspection of the chest OTHER: Tenderness upper left anterior chest which extends in the left deltoid into the left lateral trapezius and scapula Resp: COMMON NORMALS: normal respiratory effort, No retractions, No use of accessory muscles and clear to auscultation bilaterally AUSCULTATION: clear to auscultation bilaterally Cardio: COMMON NORMALS: regular rate, No murmurs present (Cardio) and Peripheral pulses 2+ throughout RATE: regular rate PERIPHERAL PULSES: Peripheral pulses 2+ throughout GI: COMMON NORMALS: Normal to inspection, nondistended, normoactive bowel sounds present, Soft to palpation and non-tender PALPATION: Yes Soft to palpation : COMMON NORMALS: Yes no CVA tenderness BLADDER/KIDNEY EXAM: Yes no CVA tenderness Back/Pelvis: COMMON NORMALS: no CVA tenderness, thoracic and lumbar spine normal to inspection and thoraco-lumbar ROM normal BACK IMAGE (MALE): 1. Tender Extremity: COMMON NORMALS: normal to inspection, capillary refill normal, no calf tenderness and no pedal edema NARRATIVE EXTREMITY EXAM: Tenderness left glenohumeral joint with external rotation and abduction. Neuro: COMMON NORMALS: patient oriented x3, moves all extremities, no focal motor deficits and no sensory deficits noted Psych: COMMON NORMALS: mental status grossly normal Skin: COMMON NORMALS: no rashes or lesions noted, no wounds and turgor normal GENERAL SKIN EXAM: no rashes or lesions noted and turgor normal Course Reevaluation(s): Reevaluation #1: Patient remained stable with normal vital signs no new or focal findings on repeat evaluation. Time: 23:24 Vital Signs: Vital signs: Vital Signs Temperature 97.9 F 04/09/22 19:28 Pulse Rate 60 04/09/22 21:17 Respiratory Rate 16 04/09/22 21:17 Blood Pressure 120/78 04/09/22 21:17 Pulse Oximetry 95 04/09/22 21:17 Oxygen Delivery Me thod 04/09/22 19:28 MDM - Chest Pain Medical Decision Making This patient who presented to the emergency department with concerns about possible cardiac related chest pains due to current symptoms. His clinical examination was reassuring for no evidence of any serious etiology of symptoms. He certainly does have some reproducible left shoulder girdle trapezius tenderness and discomfort during examination particular with movement of his left glenohumeral joint in a externally rotated and abductor did position. Serial troponins, serial EKGs chest x-ray other tests were also reassuring and puts him at low risk of ACS, cardiac ischemia etc. Prior CTA last January revealed no evidence of great vessel disease and likelihood of this being an etiology tonight remains extremely low. Discussed current findings, their limi tations etc. 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 We discussed current findings, the limitations and also need for close follow-up. He voiced understanding and was appreciative of care. Suitable for discharge at this time. Medical Records I reviewed the patient's medical records. Lab Data I reviewed the patient's lab results. 04/09/22 19:58 04/09/22 19:58 Radiology Impressions Chest X-Ray 04/09/22 19:45 IMPRESSION: No acute disease. Laboratory Results WBC 7.3 10^3/uL (4.0-10.0) 04/09/22 19:58 RBC 4.71 10^6/uL (4.1-5.3) 04/09/22 19:58 Hgb 13.6 g/dL (11.7-16.6) 04/09/22 19:58 Hct 42.0 % (42.0-52.0) 04/09/22 19:58 MCV 89.2 fl (80-94) 04/09/22 19:58 MCH 28.9 pg (28.0-34.0) 04/09/22 19:58 MCHC 32.4 g/dL (30.0-36.0) 04/09/22 19:58 RDW 13.4 % (12.1-15.1) 04/09/22 19:58 Plt Count 215 10^3/cmm (130-400) 04/09/22 19:58 MPV 9.7 fL (7.4-10.4) 04/09/22 19:58 Neut % (Auto) 56.9 % 04/09/22 19:58 Lymph % (Auto) 30.5 % 04/09/22 19:58 Hodgeman % (Auto) 9.6 % 04/09/22 19:58 Eos % (Auto) 2.2 % 04/09/22 19:58 Baso % (Auto) 0.7 % 04/09/22 19:58 Neut # (Auto) 4.15 10^3/uL (1.8-7.7) 04/09/22 19:58 Lymph # (Auto) 2.2 10^3/uL (0.8-4.8) 04/09/22 19:58 Hodgeman # (Auto) 0.7 10^3/uL (0.2-0.9) 04/09/22 19:58 Eos # (Auto) 0.2 10^3/uL (0.0-0.8) 04/09/22 19:58 Baso # (Auto) 0.1 10^3/uL (0.0-0.1) 04/09/22 19:58 Nucleated RBC % (auto) 0 % 04/09/22 19:58 Nucleated RBCs # 0.0 /100WBC 04/09/22 19:58 Sodium 142 mmol/L (136-145) 04/09/22 19:58 Potassium 3.7 mmol/L (3.5-5.1) 04/09/22 19:58 Chloride 104 mmol/L (98-107) 04/09/22 19:58 Carbon Dioxide 29 mmol/L (22-29) 04/09/22 19:58 Anion Gap 12.7 (5-19) 04/09/22 19:58 BUN 19 mg/dL (8-23) 04/09/22 19:58 Creatinine 0.7 mg/dL (0.7-1.2) 04/09/22 19:58 GFR Calculation 114.6 mL/min (90-130) 04/09/22 19:58 Glucose 111 mg/dL (65-115) 04/09/22 19:58 Calculated Osmolality 297 mOsm/kg (285-295) H 04/09/22 19:58 Calcium 9.0 mg/dL (8.5-10.5) 04/09/22 19:58 Troponin T Baseline 8 ng/L (0-15) 04/09/22 19:58 Troponin T 120 Minute 7.90 ng/L (0-15) 04/09/22 21:48 Discharge Plan Discharge Patient Disposition: Home Clinical Impression: Atypical chest pain, Pain of shoulder girdle Condition: Stable Prescriptions: No Action valsartan 40 mg tablet 80 mg PO DAILY loratadine [Claritin] 10 mg tablet 10 mg PO DAILY aspirin 325 mg Tablet 325 mg PO ONCE pentoxifylline 400 mg tablet extended release 400 mg PO TID Discharge Orders: Discharge ED (Routine); Ordered 04/09/22 Ordered By: Bandar Lei Referrals: Xiao Zapata MD [Primary Care Provider] - Discharge Diet: Usual diet Discharge Activity: Increase activity as tolerated Patient Instructions: Opioid Safety, Pain Management Activity Restrictions/Additional Instructions: As we discussed during your emergency department evaluation we did not find any evidence of a serious cause of your pain to include heart attack etc. There is certainly high potential that this is related to muscles and soft tissues of your shoulder area. We have command resting this area for the next 2 to 3 days to see to ensure that her symptoms completely jhony. If you develop persistent, worsening symptoms or associated shortness of breath or other concerns return to this emergency department immediately. Continue all your usual medications. Coding Level of Care Code ED Microgrinder Operator for Kirkg Fwd Exam Comprehensive
[2022-04-09 21:17] VITALS: BP 120/78; PULSE 60; RESP 16; O2SAT 95
[2022-04-09 23:47] VITALS: BP 123/80; PULSE 60; RESP 17; O2SAT 96
== END 2022-04-09 23:50 | disposition home or self-care (01) ==
PROVIDERS: Emergency Provider Emergency Medicine; PCP Internal Medicine
DX: R07.89 Other chest pain (principal); M25.512 Pain in left shoulder; I10 Essential (primary) hypertension
CPT/HCPCS: 71045; 80048; 84484; 85025; 99285

== ENCOUNTER 2022-05-02 08:03 | Outpatient (CLI) | payer OTHER, SELFPAY ==
[2022-05-02 08:32] VITALS: BMI 30.5
--- NOTE | 2022-05-02 08:41 | ECG_ITS ---
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 Interpretive Statements NAME OF STUDY: LEXISCAN SESTAMIBI STRESS TEST INDICATION: [Chest Pain, ] Procedure: At the baseline, the blood pressure was 125/82 mmHg with a heart rate of 65 bpm. The electrocardiogram showed V paced rhythm. The Lexiscan was infused over a period of 20 seconds. A total of 0.4 mg of Lexiscan was infused. The stress phase was continued for a total of 5 minutes. Heart rate was at the end of stress phase was 65 bpm and a blood pressure of 113/68 mmHg. The EKG at the peak infusion revealed paced rhythm. Sestamibi was injected 20 seconds after the Lexiscan infusion. Blood pressure at the end of recovery phase was 108/64 mmHg with a heart rate of 64 bpm. Conclusion: 1. Normal EKG response to Lexiscan infusion 2. No Lexiscan induced chest pain or cardiac arrhythmia. 3. Normal blood pressure and heart rate response. 4. Sestamibi/sestamibi perfusion scan pending; see separate report. Electronically Signed On 05-24-2022 23:00:07 RES COUNSELOR by Miguel Angel Mcdowell M.D. [email or web address]
--- NOTE | 2022-05-02 08:42 | NMCV_ITS ---
NM amanda perf SPECT r/s* [id number] Be Sim Age: 61 Gender: M : 1960 Exam Date: 05/02/2022 09:15 Ordering Phys: Xiao Zapata MD Technologist: LAURA Lester Exam Location: [facility] Indications: CHEST PAIN STRESS TEST [facility] IMAGE PROTOCOL Rest/Stress 1 Lexiscan Day Radiopharmaceutical Dose (mCi) Administration Site Administered by Rest: Tc-99m 10.6 IV LAURA Jones Sestamibi Stress:Tc-99m 32.7 IV LAURA Jones Sestamibi Rest: 02-May-2022 60 Discovery 630 Stress: 02-May-2022 30 Discovery 630 0.4mg Lexiscan. Images obtained in supine and prone position. SPECT RESULTS Technical Quality: Excellent Raw Data Analysis: Normal Image Corrections: No attenuation or motion correction applied Summed Stress Score: 6 Summed Rest Score: 8 Summed Difference Score: 0 PERFUSION FINDINGS There is medium sized, fixed perfusion defect noted in the apical, apical septal and inferoseptal mclean. This is consistent with medium sized area of prior infarcts noted in the LAD and RCA territories. FUNCTIONAL RESULTS (calculated via Gated SPECT) Stress Image LV EF (%): 62 Stress EDV (mL):149 TID: 1.01 Stress ESV (mL):57 FUNCTIONAL FINDINGS: There is normal left ventricular systolic function. IMPRESSIONS 1. Medium sized areas of prior infarction noted in the LAD and RCA territories. Minimal tosin-infarct ischemia is seen in the RCA distribution. No significant area of ischemia is seen. 2. LV systolic function is normal Miguel Angel Mcdowell MD (Electronically Signed) Final Date: 02 May 2022 12:50 S
[2022-05-02] MEDS: regadenoson 0.4 Mg/5 ml Syringe IVP (09:59)
[2022-05-02 10:09] VITALS: BP 108/64; PULSE 63
== END 2022-05-02 08:04 | disposition home or self-care (01) ==
PROVIDERS: PCP Internal Medicine; Visit Provider Internal Medicine
DX: R07.9 Chest pain, unspecified (principal)
CPT/HCPCS: 36415; 78452; 93017; 96374; A9500; J2785

== ENCOUNTER 2022-05-27 08:41 | Outpatient (CLI) | payer OTHER, SELFPAY ==
[2022-05-27 09:10] LABS: Basophils # 0.1 10^3/uL (0.0-0.1); Eosinophils # 0.3 10^3/uL (0.0-0.8); Eosinophils % 5.7 %; Hematocrit 41.6 % (42.0-52.0); Hemoglobin 13.9 g/dL (11.7-16.6); Lymphocytes # 1.1 10^3/uL (0.8-4.8); Lymphocytes % 19.2 %; Mean Corpuscular HGB Conc 33.4 g/dL (30.0-36.0); Mean Corpuscular Hemoglobin 29.2 pg (28.0-34.0); Mean Corpuscular Volume 87.4 fl (80-94); Mean Platelet Volume 9.3 fL (7.4-10.4); Monocytes # 0.7 10^3/uL (0.2-0.9); Monocytes % 12.9 %; Nucleated Red Blood Cells % 0 %; Platelet Count 233 10^3/cmm (130-400); Red Blood Count 4.76 10^6/uL (4.1-5.3); Red Cell Distribution Width 13.5 % (12.1-15.1); White Blood Count 5.7 10^3/uL (4.0-10.0)
[2022-05-27 09:21] LABS: INR 1.01 (0.83-1.21); Prothrombin Time (Patient) 13.6 Seconds (12.0-15.1)
[2022-05-27 09:31] LABS: Anion Gap 15.3 (5-19); Blood Urea Nitrogen 19 mg/dL (8-23); Carbon Dioxide 26 mmol/L (22-29); Chloride 103 mmol/L (98-107); Glomerular Filtration Rate 98.3 mL/min (90-130); Glucose 100 mg/dL (65-115); Osmolality Calculated 292 mOsm/kg (285-295); Potassium 4.3 mmol/L (3.5-5.1); Sodium 140 mmol/L (136-145)
== END 2022-05-27 08:42 | disposition home or self-care (01) ==
LOC: LAB 08:48
PROVIDERS: PCP Internal Medicine; Visit Provider Internal Medicine Cardiovascular Disease
DX: I44.2 Atrioventricular block, complete (principal); R07.9 Chest pain, unspecified; R94.39 Abnormal result of other cardiovascular function study
CPT/HCPCS: 36415; 80048; 81003; 85025; 85610

== ENCOUNTER 2022-06-02 05:57 | Outpatient (CLI) | payer OTHER, SELFPAY ==
[2022-06-02] VITALS (15 sets, daily range): BP systolic 104–144; BP diastolic 72–94; PULSE 60–62; RESP 14–18; TEMP 36.5; O2SAT 94–98; BMI 31.3
--- NOTE | 2022-06-02 06:00 | XACV_ITS ---
Ht: 183 cm Wt: 105 kg BSA: 2.33 m2 Gender: Male : 1960 Any Known Allergies: No known allergies Exam Priority: Routine Procedure(s): Procedure Description: Diagnostic procedure Procedure Description: Left Heart Catheterization Procedure Description: Left ventriculography Procedure Description: Coronary Angiography Hung HARKINS; Diagnostic Cath Status: Elective Diagnostic Findings * Previous high degree AV block block in need of pacemaker. Atypical chest discomfort with minimal abnormalities on stress testing. Pain continued so he was recommended for angiography. * Coronary angiography reveals right coronary artery dominance. The left main coronary artery is normal and bifurcates into the LAD and circumflex. There are 2 marginal branches. The circumflex is normal. The LAD is normal. The right coronary artery is a dominant vessel and ends distally as the posterior descending artery. The right coronary artery is normal. Conclusions 1. Normal coronary arteries. Normal left ventricular function. Recommendations * None. Interventional RX Recommendation: none Diagnostic RX Recommendation: none Anticoagulation: Heparin Ventriculography Ejection Fraction: 60.0 % Pressures Phase:Rest AO : 114 / 74 ( 91 ) @ 7:04:00 AM 115 / 73 ( 92 ) @ 7:11:00 AM LV : 122 / 1 / 16 @ 7:10:00 AM 120 / 4 / 18 @ 7:10:00 AM 121 / 4 / 19 @ 7:11:00 AM Valves Phase:DefaultPhase AV : 5.0 @ 7:24:22 AM 5.0 @ 7:24:22 AM AV Mean Gradient: 14.0 @ 7:24:22 AM 14.0 @ 7:24:22 AM Clinical Evaluation EBL: 5mL-10mL Procedural Details Procedure Consent Obtained. Pre-Procedure Time Out. Identified patient by full name and date of as verbalized by the patient/guarantor. Does the consent match the physician's order: Yes. Accurate & Complete Informed Consent: Yes. Inpatient/Outpatient History & Physical on Chart: Yes. If H&P is completed, is and addenduem needed: No. Visualize and Verify Site with Patient/Guarantor: N/A. Relevant Radiology Images available: Yes. The risks, benefits, and alternatives of sedation and/or procedure were discussed by physician. The patient agrees to continue. Procedure started. [facility] Clinical Fraility Score: 3: Managing Well. Video Tape Duplicator Indications: Worsening Angina. Chest Pain Symptom Assessment: Typical Angina Symptoms. Cardiovascular Instability: No. Correct patient, site and procedure confirmed by cath team. PERRLA. 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 Lungs clear x 5 lobes. IV Site on Arrival: 20 gauge in the left anticubital. IV Fluids: 0.9% NaCl at KVO. 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 Pre Procedural Pulses: bilateral dorsalis pedis was 2+. Pre Procedural Pulses: bilateral posterior tibial was 2+. Pre Procedural Pulses: bilateral radial was 1+. Oxygen started at 2liters/min via nasal canula. right groin was prepped with chloroprep then draped in the usual sterile fashion. right radial was prepped with chloroprep then draped in the usual sterile fashion. Baseline sample Acquired. HR: 60 BPM. Physician notified. Patient's spouse is in CPRU room #3. Dr Persaud will update at the completion of the procedure. Equipment: 6F - Radial. Cardiac Cath Pack. ACIST Manifold Kit Model BT 2000. Heparinized Saline (2 units/mL), 1000 mL bag. Physician arrived. Physician scrubbed in. Immediate Pre-Procedure Time Out. Correct Patient: Yes; Correct Procedure: Yes; Correct Site: Yes; Correct Patient Position: Yes; Correct Supplies: Yes; Dried Flammable Prep: Yes; Blood Products Available: N/A;. Lidocaine 1% infiltrated to the right radial. Arterial access obtained. A 5 bermudian JL4 catheter in over wire. A 6 bermudian TIG catheter in over the exchange J wire. Multiple views taken of left coronary artery. Catheter redirected to the RCA. Multiple views taken of right coronary artery. Catheter removed over the exchange J wire. A 5 bermudian Straight Pig catheter in over wire. EDP Sample taken: LV 122/1,16; HR: 60 BPM; SpO2: 96%. LV gram performed in GREGORY @ 10 mL/second for a total of 30 mL. EDP Sample taken: LV 120/4,18; HR: 60 BPM; SpO2: 96%. Pullback taken: LV 121/4,19; AO 115/73(92); Mean: 14mmHg, Peak to Peak: 5mmHg, SEP: 8sec/min; HR: 60 BPM; SpO2: 96%. Physician scrubbed out. A TR Band was successful obtaining hemostatsis at the Right Radial artery insertion site. TR band placed. Hemostasis obtained. Post Procedure: Pulses reassessed and unchanged. PERRLA. 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 No VTE prophylaxis required. Medication's Wasted: Other = Fentanyl 50 mcg. Medication's Wasted: Heparin = 1000 units. Medication's Wasted: Nitro = 49.8 mg. Medication's Wasted: Lidocaine 1% = 2 mL. Total IV fluids: 26 mL. Post-op diagnosis: Normal CAD. Complications: none. Estimated blood loss: 5mL-10mL. Responsiveness - Normal response to verbal stimuli; alert and oriented, PERRLA. Airway - Unaffected, no intervention required; spontaneous ventilation. Circulation: W/N/L, pulses unchanged. Nausea/Vomiting: No. Procedure completed. Patient transferred by wheelchair to CPRU. Vital chart was stopped. Catheter removed over the exchange J wire. Access Site Site: Right Radial artery Sheath Size: 6 Fr Hemostasis Method: TR Band Hemostasis Success: Successful Procedure Medications Start: 7:02 AM Stop: 7:02 AM Medication: Versed Amount: 1 mg Route: I.V. Start: 7:03 AM Stop: 7:03 AM Medication: Fentanyl Amount: 50 mcg Route: I.V. Start: 7:03 AM Stop: 7:03 AM Medication: Versed Amount: 1 mg Route: I.V. Start: 7:07 AM Stop: 7:07 AM Medication: Heparin Amount: 5000 units Route: I.V. Start: 7:03 AM Stop: 7:03 AM Medication: Nitrogylcerin Amount: 200 mcg Route: I.A. I, the attending physician, have reviewed and verified all procedure medications. Yes, all medications given per verbal order History/Risk Factors Hypertension: Yes Dyslipidemia: No Peripheral Arterial Disease (PAD): No Myocardial Infarction (OK): No Obesity: No Renal Disease: No Tobacco Use: Never Prior Interventions PCI: No CABG: No Valve Surgery: No Report Signatures Finalized by Dr. John Persaud MD on 06/02/2022 07:28 AM
[2022-06-02] MEDS: aspirin 325 mg Tablet PO (06:29)
[2022-06-02] MEDS: diphenhydrAMINE 50 mg Capsule PO (06:29)
--- NOTE | 2022-06-02 06:49 | W.PM.OPSUD ---
Surgery/Procedure H&P Update DATE OF PROCEDURE: June 02, 2022 DATE H&P PERFORMED: 05/13/22 CHANGES TO PREVIOUS DOCUMENTATION: None PREOP DIAGNOSIS: chest pain abnormal stress test PLANNED PROCEDURE: Operation Date: 06/02/22 07:00 Proposed Procedures p [facility] w-w/o 51232,R94.39,R07.9, I10(Left) - John Persaud MD
--- NOTE | 2022-06-02 07:20 | SUR.PHASEII ---
POST CATH NOTE Patient back to CPRU-3. Status post cardiac catheterization via the right radial approach. TR band- hemostatic and no hematoma formation noted. Verbal post cath instructions given to patient/. Understood instructions well. Call light placed in reach. Informed to call for needs.
--- NOTE | 2022-06-02 07:38 | SUR.PHASEII ---
POST CATH IV FLUID RATE 100 ML/HR OF 0.9%NS. SET AND INFUSTING ORDERED.
--- NOTE | 2022-06-02 08:30 | SUR.PHASEII ---
TR BAND REMOVAL BEGAN PER PROTOCOL.
--- NOTE | 2022-06-02 10:00 | SUR.PHASEII ---
TR BAND OFF- BANDAGE APPLIED. NO HEMATOMA NOTED.
--- NOTE | 2022-06-02 10:10 | P.DS_ITS ---
Discharge Providers Date of Admission: 06/02/2022 Date of Discharge: June 02, 2022 Attending Provider at Admission: remy Attending Provider at Discharge: John Persaud MD Primary Care Provider: Xiao Zapata MD Diagnoses at Discharge Discharge Diagnosis (1) Abnormal nuclear stress test: Status: Acute (2) Chest pain: Status: Acute Reason for Visit Reason for Visit: R07.9 Brief History: Patient had atypical chest pain as an outpatient. His stress test was minimally abnormal with a fixed defect but no ischemia. Despite that continued chest pain prompted coronary angiography Hospital Course Hospital Course Coronary arteries and left ventriculography are normal. Procedure was done from the right radial artery. No complications. Physical Exam Narrative: GENeRAL: In general he looks and feels well and is comfortable at rest HEENT: Exam within normal limits. NECK: Supple without jugular vein distention. The carotid upstroke is normal without bruits. BACK: Exam normal. LUNGS: Clear. HEART: Regular rate and rhythm. ABDOMEN: Benign without organomegaly or tenderness. EXTREMITIES: No edema. The right radial artery area is flat, dry without hematoma or bleeding at the time of discharge NEUROLOGIC: Exam normal. SKIN: Unremarkable. Discharge Data Studies Completed and Pending Completed Studies During Hospitalization Category Date Time Status [employer] request for service Routine Exams 06/02/22 06:00 Completed Procedures Performed Left heart catheterization, coronary angiography, left ventriculography Vitals Last Vital Signs Temp 97.7 F 06/02/22 06:36 Pulse 60 06/02/22 10:00 Resp 16 06/02/22 10:00 BP 144/94 06/02/22 10:00 Pulse Ox 98 06/02/22 10:00 O2 Del Method 06/02/22 10:00 Discharge Plan Discharge Patient Disposition: Home Prescriptions: No Action valsartan 40 mg tablet 80 mg PO DAILY loratadine [Claritin] 10 mg tablet 10 mg PO DAILY pentoxifylline 400 mg tablet extended release 400 mg PO TID Qty: 300 3RF citalopram 40 mg tablet 40 mg PO DAILY Discharge Orders: Discharge Order (Routine); Ordered 06/02/22 Ordered By: John Persaud Diet: Regular Activity: Limit activity as instructed Activity Restrictions/Additional Instructions: No lifting over 5 pounds for 2 days with the right upper extremity. No driving a vehicle today Discharge Attestations Time Spent in Discharge Care*: less than 30 min Quality Metrics Clinical Quality Measures [ No reported AMI, CVA or VTE this stay] Coding Level of Care Code 37407 Total time (in minutes) for Discharge: 25 Diagnoses Abnormal nuclear stress test R94.39 Chest pain R07.9
== END 2022-06-02 11:04 | disposition home or self-care (01) ==
PROVIDERS: PCP Internal Medicine; Visit Provider Internal Medicine Cardiovascular Disease
DX: R07.89 Other chest pain (principal); R94.39 Abnormal result of other cardiovascular function study; I10 Essential (primary) hypertension; I25.10 Atherosclerotic heart disease of native coronary artery without angina pectoris; Z95.0 Presence of cardiac pacemaker
CPT/HCPCS: 36415; 93458; 96361; 96365; 99152; 99153; C1769; C1887; C1894; J1644; J2250; J3010; J3490; J7030; Q0163; Q9967